=== PATIENT | male | born 1935 | race Caucasian/White ===

== ENCOUNTER 2017-08-30 13:43 | Inpatient (IN) | payer MEDICARE, OTHER ==
[~2017-08-30] VITALS: Ht 188 cm; Wt 87.1 kg
[~2017-08-30 13:43] MED LIST: SYNTHROID100 MCG PO; [UNRECOGNIZED DRUG - OTHER]
[2017-08-30] MEDS ORDERED: CHLORTHALIDONE25 MG PO (13:55)
[2017-08-30 14:46] LABS: HEMATOCRIT 27.8 % (42.0-52.0); HEMOGLOBIN 9.6 gm/dL (14.0-18.0); MCH 32.4 pg (26.0-34.0); MCHC 34.6 g/dL (28.0-37.0); MCV 93.5 fL (80.0-100.0); MPV 7.8 fl. (7.2-11.1); NUCLEATED RBCS 0 /100WBC; PLATELET COUNT* 160 thou/uL (150-400); RBC 2.97 mil/uL (4.50-6.00); RDW-CV 15.1 % (10.5-14.5); WBC 8.6 thou/uL (4.0-11.0)
[2017-08-30 14:54] LABS: URINE BILIRUBIN NEGATIVE (Negative); URINE BLOOD 3+ (Negative); URINE CLARITY CLEAR; URINE COLOR YELLOW; URINE GLUCOSE-RANDOM NEGATIVE (Negative); URINE KETONES NEGATIVE (Negative); URINE LEUKOCYTES-REFLEX 1+ (Negative); URINE NITRITE-REFLEX POSITIVE (Negative); URINE PROTEIN TRACE (Negative); URINE SPECIFIC GRAVITY 1.015 (1.005-1.030); URINE UROBILINOGEN 0.2 E.U./dl (0.2-1.0)
[2017-08-30 14:57] LABS: ANION GAP 21 mmol/L (7-16); BUN 114 mg/dL (7-18); CALCIUM 6.7 mg/dL (8.5-10.1); CHLORIDE 96 mmol/L (98-107); CO2 19 mmol/L (21-32); CREATININE 12.7 mg/dL (0.6-1.3); GLUCOSE 108 mg/dL (70-99); POTASSIUM 3.4 mmol/L (3.5-5.1); SODIUM 136 mmol/L (136-145)
[2017-08-30 15:04] LABS: ALBUMIN 2.7 g/dL (3.4-5.0); ALKALINE PHOSPHATASE 50 U/L (46-116); SGOT 16 U/L (15-37); SGPT 14 U/L (30-65); TOTAL BILIRUBIN 0.4 mg/dL (<0.1-1.0); TOTAL PROTEIN 5.9 g/dL (6.4-8.2); TROPONIN-I LEVEL <0.06 ng/mL (<0.06)
[2017-08-30 15:13] LABS: ABSOLUTE BASOPHILS 0.1 thou/uL (0.0-0.2); ABSOLUTE EOSINOPHILS 0.3 thou/uL (0.0-0.7); ABSOLUTE LYMPHOCYTES 0.2 thou/uL (0.8-5.3); ABSOLUTE MONOCYTES 0.4 thou/uL (0.0-1.2); ABSOLUTE NEUTROPHILS 7.6 thou/uL (1.6-8.1); PLATELET ESTIMATE ADEQUATE
[2017-08-30 15:25] LABS: BACTERIA-REFLEX None Seen /HPF (None Seen); SQUAMOUS 4-10 Moderate /LPF (0-3); URINE RBC 3-10 Few /HPF (0-2); URINE WBC-REFLEX >25 Many /HPF (0-5)
[2017-08-30 15:26] LABS: CASTS None Seen /LPF (None Seen); CRYSTALS None Seen /LPF (None Seen)
--- NOTE | 2017-08-30 17:34 | EKG ---
[place] [address] ELECTROCARDIOGRAM REPORT Name: VAL HORVATH Room: [facility]#: [id number] Admission: 08/30/17 Attend Phys: Discharge: Date of : 31 Report #: [id number] THIS REPORT FOR: //name// [facility] ED Test Date: 2017-08-30 Test Time: 14:11:39 Pat Name: VAL HORVATH Department: Room: Gender: Communications Editor: : 1935 Requested By: Delores Betancourt Order Number: [id number] MD: Rishi Tellez Measurements Intervals [place] Rate: 52 P: 32 VT: 192 QRS: -19 QRSD: 124 T: 3 QT: 474 QTc: 441 Interpretive Statements Sinus rhythm Atrial premature complexes Nonspecific intraventricular conduction delay No previous ECG available for comparison Electronically Signed On 08-30-2017 17:34:02 [employer] SALES CONSULTANT by Rishi Tellez [email or web address] <ELECTRONICALLY SIGNED> By: Rishi Tellez MD, [facility] 08/30/17 1734 1411 1411 Rishi Tellez MD, FACC /EPI
[2017-08-30 18:15] VITALS: BP 136/43
[2017-08-30] MEDS ORDERED: ACETAMINOPHEN325 MG PO (18:58)
[2017-08-30] MEDS ORDERED: MIRALAX17 GM PO (18:59)
[2017-08-30 20:00] VITALS: BP 110/52
[2017-08-31 04:00] VITALS: BP 147/53
[2017-08-31 06:07] LABS: HEMATOCRIT 28.5 % (42.0-52.0); HEMOGLOBIN 9.6 gm/dL (14.0-18.0); MCH 31.8 pg (26.0-34.0); MCHC 33.6 g/dL (28.0-37.0); MCV 94.6 fL (80.0-100.0); MPV 7.5 fl. (7.2-11.1); RBC 3.01 mil/uL (4.50-6.00); RDW-CV 14.8 % (10.5-14.5); WBC 7.7 thou/uL (4.0-11.0)
[2017-08-31 06:37] LABS: ALBUMIN 2.6 g/dL (3.4-5.0); CALCIUM 6.7 mg/dL (8.5-10.1); MAGNESIUM 2.1 mg/dL (1.8-2.4); POTASSIUM 3.8 mmol/L (3.5-5.1); TOTAL BILIRUBIN 0.3 mg/dL (<0.1-1.0); TOTAL PROTEIN 5.3 g/dL (6.4-8.2)
[2017-08-31 06:44] LABS: CREATININE 9.9 mg/dL (0.6-1.3)
[2017-08-31 08:19] VITALS: BP 121/41
[2017-08-31 16:00] VITALS: BP 134/69
[2017-08-31 20:00] VITALS: BP 124/40
[2017-09-01] VITALS: BP 139/43
[2017-09-01 04:00] VITALS: BP 141/46
[2017-09-01 05:40] LABS: ALBUMIN 2.4 g/dL (3.4-5.0); CALCIUM 7.2 mg/dL (8.5-10.1); TOTAL BILIRUBIN 0.3 mg/dL (<0.1-1.0); TOTAL PROTEIN 5.4 g/dL (6.4-8.2)
[2017-09-01 05:56] LABS: CREATININE 6.4 mg/dL (0.6-1.3)
[2017-09-01 05:57] LABS: POTASSIUM 2.8 mmol/L (3.5-5.1)
[2017-09-01 08:00] VITALS: BP 129/90
[2017-09-01 12:00] VITALS: BP 136/65
[2017-09-01 16:00] VITALS: BP 139/57
[2017-09-01 20:07] VITALS: BP 128/42
[2017-09-02 04:20] VITALS: BP 175/71
[2017-09-02 05:27] LABS: HEMATOCRIT 24.8 % (42.0-52.0); HEMOGLOBIN 8.4 gm/dL (14.0-18.0); MCH 32.2 pg (26.0-34.0); MCV 94.5 fL (80.0-100.0); MPV 7.6 fl. (7.2-11.1); RBC 2.62 mil/uL (4.50-6.00); RDW-CV 14.9 % (10.5-14.5); WBC 7.2 thou/uL (4.0-11.0)
[2017-09-02 05:46] LABS: ALBUMIN 2.5 g/dL (3.4-5.0); CALCIUM 7.6 mg/dL (8.5-10.1); CREATININE 4.4 mg/dL (0.6-1.3); TOTAL BILIRUBIN 0.3 mg/dL (<0.1-1.0); TOTAL PROTEIN 5.4 g/dL (6.4-8.2)
[2017-09-02 05:47] LABS: POTASSIUM 2.9 mmol/L (3.5-5.1)
[2017-09-02 08:00] VITALS: BP 173/63
[2017-09-02 16:23] LABS: CALCIUM 7.6 mg/dL (8.5-10.1); CREATININE 3.7 mg/dL (0.6-1.3); POTASSIUM 3.4 mmol/L (3.5-5.1)
[2017-09-02 18:00] VITALS: BP 152/52
[2017-09-02 23:05] VITALS: BP 101/59
[2017-09-03 06:50] LABS: HEMATOCRIT 24.7 % (42.0-52.0); HEMOGLOBIN 8.4 gm/dL (14.0-18.0); MCH 32.2 pg (26.0-34.0); MCHC 33.9 g/dL (28.0-37.0); MCV 94.9 fL (80.0-100.0); MPV 7.4 fl. (7.2-11.1); RBC 2.61 mil/uL (4.50-6.00); RDW-CV 14.9 % (10.5-14.5)
[2017-09-03 07:03] LABS: CALCIUM 7.8 mg/dL (8.5-10.1); CREATININE 3.2 mg/dL (0.6-1.3); POTASSIUM 3.1 mmol/L (3.5-5.1)
[2017-09-03 09:47] VITALS: BP 148/37
[2017-09-03 14:58] LABS: URINE BILIRUBIN NEGATIVE (Negative); URINE BLOOD 2+ (Negative); URINE CLARITY CLEAR; URINE COLOR YELLOW; URINE GLUCOSE-RANDOM NEGATIVE (Negative); URINE KETONES NEGATIVE (Negative); URINE LEUKOCYTES-REFLEX TRACE (Negative); URINE NITRITE-REFLEX NEGATIVE (Negative); URINE PROTEIN NEGATIVE (Negative); URINE SPECIFIC GRAVITY 1.015 (1.005-1.030); URINE UROBILINOGEN 0.2 E.U./dl (0.2-1.0)
[2017-09-03 15:20] LABS: CASTS None Seen /LPF (None Seen); MUCUS 0-3 Light strn/LPF (None Seen); SQUAMOUS 0-3 Few /LPF (0-3); URINE RBC 3-10 Few /HPF (0-2); URINE WBC-REFLEX 6-15 Few /HPF (0-5); WBC CLUMPS Few (None Seen)
[2017-09-03 15:33] LABS: CRYSTALS None Seen /LPF (None Seen)
[2017-09-03 16:11] LABS: POTASSIUM 3.6 mmol/L (3.5-5.1)
[2017-09-03 16:23] VITALS: BP 147/52
[2017-09-04 00:28] VITALS: BP 175/58
[2017-09-04 06:35] LABS: HEMATOCRIT 25.3 % (42.0-52.0); HEMOGLOBIN 8.5 gm/dL (14.0-18.0); MCH 31.7 pg (26.0-34.0); MCHC 33.5 g/dL (28.0-37.0); MCV 94.7 fL (80.0-100.0); MPV 7.7 fl. (7.2-11.1); RBC 2.68 mil/uL (4.50-6.00); RDW-CV 14.9 % (10.5-14.5); WBC 8.1 thou/uL (4.0-11.0)
[2017-09-04 06:43] LABS: CREATININE 2.8 mg/dL (0.6-1.3); MAGNESIUM 1.6 mg/dL (1.8-2.4); POTASSIUM 3.3 mmol/L (3.5-5.1)
[2017-09-04] MEDS ORDERED: FLOMAX0.4 MG PO (07:12)
[2017-09-04] MEDS ORDERED: LEVAQUIN 500 M500 M2 PO (07:12)
[2017-09-04] MEDS ORDERED: ACIDOPHILUS1 EAC4 PO (07:12)
[2017-09-04 07:50] VITALS: BP 175/69
[2017-09-04] MEDS ORDERED: MAGOX 400400 MG PO (09:33)
[2017-09-04] MEDS ORDERED: KLOR-CON 1010 MEQ PO (09:33)
[2017-09-04 10:53] VITALS: BP 175/69
[2017-09-04 12:20] VITALS: BP 175/69
[2017-09-04 12:58] VITALS: BP 175/69
--- NOTE | 2017-09-13 09:46 | CON ---
[address] [address] CONSULTATION Name: YULIETVAL Reji Room: [address] IN M.R.#: [id number] Admission: 08/30/17 Attend Phys: Ronit Hoang MD Discharge: 09/04/17 Date of : 31 Report #: [id number] THIS REPORT FOR: //name// CC: Mauro Khan DATE OF SERVICE: 08/31/2017 REQUESTING PHYSICIAN: Dr. Hoang. REASON FOR CONSULTATION: Acute kidney injury. HISTORY OF PRESENT ILLNESS: The patient is a very pleasant 82-year-old gentleman with medical history significant for bladder cancer who presents to the Emergency Room with complaints of abdominal pain, discomfort, and urinary retention. The patient had a surgery for bladder cancer at [facility] 1 week ago. When he came in, he was found to have BUN of 114 and creatinine 12.7. Kohler was placed and a large amount of urine was drained. Urology was consulted. Dr. Rosas evaluated the patient and his assessment was urinary retention and acute kidney injury due to urinary retention. Urinary retention resolving with placement of Kohler catheter. IV fluids are ongoing. FAMILY HISTORY: Noncontributory. SOCIAL HISTORY: No current tobacco or alcohol abuse. REVIEW OF SYSTEMS: Positive for abdominal distention, decreased urine output prior to placement of the Kohler, poor appetite, and the patient is mildly depressed. PHYSICAL EXAMINATION: GENERAL: He is awake, alert, in no acute distress at the time of my examination. VITAL SIGNS: His blood pressure is 120/41, heart rate is 54, respirations 16, afebrile. HEENT: Pupils are round. NECK: Supple. LUNGS: Clear to auscultation bilaterally. CARDIOVASCULAR: Regular rate. ABDOMEN: Soft. EXTREMITIES: No edema. GENITOURINARY: Kohler catheter in place. LABORATORY DATA: Blood work this morning, serum sodium 145, potassium 3.8, chloride 105, carbon dioxide 22, BUN 104, and creatinine 9.9 down from 12.7 [place] [address] CONSULTATION Name: YULIETVAL M Room: [address]#: [id number] Admission: 08/30/17 Attend Phys: Ronit Hoang MD Discharge: 09/04/17 Date of : 31 Report #: [id number] yesterday. Calcium was 6.7, albumin was 2.6, so adjusted calcium is 7.8. ASSESSMENT: 1. Acute kidney injury due to urinary retention. 2. Recent bladder surgery for bladder cancer. Unknown baseline of his creatinine. The patient's renal functions are improving with IV fluids and Kohler catheter. Urology evaluated the patient. PLAN: We will continue with IV fluid. Continue to monitor his labs. Thank you very much for asking my opinion on acute kidney injury of the patient. <ELECTRONICALLY SIGNED> By: Brian Tapia MD 09/13/17 0946 1001 [id number] Tapia MD /[facility]
[2018-03-31] MEDS ORDERED: POTASSIUM20 PO (11:19)
[2018-03-31] MEDS ORDERED: PHENAZOPYRIDIN200 M2 PO (11:20)
[2018-03-31] MEDS ORDERED: MIRALAX17 GM PO (11:20)
[2018-03-31] MEDS ORDERED: CHLORTHALIDONE25 MG PO (11:21)
[2018-04-09] MEDS ORDERED: NORCO 5-325 TA1 EACH PO (14:17)
== END 2017-09-04 13:01 | disposition home or self-care (01) | DRG 177 ==
LOC: M.ERS 13:43 → M.TBA-ER 17:31 → M.2W 17:31 → M.ORTHSURG 09-02 13:30
PROVIDERS: Internal Medicine Nephrology; Physician Assistant; ADMIT Internal Medicine
DX: J15.6 Pneumonia due to other Gram-negative bacteria (principal); N17.1 Acute kidney failure with acute cortical necrosis; E44.1 Mild protein-calorie malnutrition; N30.01 Acute cystitis with hematuria; E86.0 Dehydration; N18.3 Chronic kidney disease, stage 3 (moderate); N13.9 Obstructive and reflux uropathy, unspecified; M48.8X6 Other specified spondylopathies, lumbar region; E03.9 Hypothyroidism, unspecified; Z68.24 Body mass index [BMI] 24.0-24.9, adult; Z85.850 Personal history of malignant neoplasm of thyroid; Z79.899 Other long term (current) drug therapy

== ENCOUNTER 2017-12-06 11:23 | Emergency (ER) | payer MEDICARE, OTHER ==
[~2017-12-06] VITALS: Ht 182.9 cm; Wt 85.7 kg
[~2017-12-06 11:23] MED LIST changes: +ACETAMINOPHEN325 MG PO; +ACIDOPHILUS1 EAC4 PO; +CHLORTHALIDONE25 MG PO; +FLOMAX0.4 MG PO; +KLOR-CON 1010 MEQ PO; +LEVAQUIN 500 M500 M2 PO; +MAGOX 400400 MG PO; +MIRALAX17 GM PO
[2017-12-06] MEDS ORDERED: PROSCAR 5MG TABL5 MG PO (11:36)
[2017-12-06] MEDS ORDERED: COMBIGAN EYE DR10 ML OPHTHALMIC (11:37)
[2017-12-06] MEDS ORDERED: PHENAZOPYRIDIN200 M2 PO (11:37)
[2017-12-06] MEDS ORDERED: HYCOSAMINE (11:38)
[2017-12-06 13:34] VITALS: BP 112/72
[2018-03-31] MEDS ORDERED: POTASSIUM20 PO (11:19)
[2018-03-31] MEDS ORDERED: MIRALAX17 GM PO (11:20)
[2018-03-31] MEDS ORDERED: PHENAZOPYRIDIN200 M2 PO (11:20)
[2018-03-31] MEDS ORDERED: CHLORTHALIDONE25 MG PO (11:21)
[2018-04-09] MEDS ORDERED: NORCO 5-325 TA1 EACH PO (14:17)
== END 2017-12-06 13:35 | disposition home or self-care (01) ==
LOC: M.ERS 11:23
DX: Z46.6 Encounter for fitting and adjustment of urinary device (principal); E03.9 Hypothyroidism, unspecified; Z85.89 Personal history of malignant neoplasm of other organs and systems

== ENCOUNTER 2018-01-09 16:08 | Inpatient (IN) | payer MEDICARE, OTHER ==
[~2018-01-09] VITALS: Ht 182.9 cm; Wt 80.1 kg
[~2018-01-09 16:08] MED LIST changes: +COMBIGAN EYE DR10 ML OPHTHALMIC; +HYCOSAMINE; +PHENAZOPYRIDIN200 M2 PO; +PROSCAR 5MG TABL5 MG PO
[2018-01-09 16:12] VITALS: BP 143/70
[2018-01-09] MEDS ORDERED: VITAMIN D2000 UNIT PO (16:19)
[2018-01-09] MEDS ORDERED: ONDANSETRON ODT8 MG PO (16:19)
[2018-01-09] MEDS ORDERED: PROTONIX 20 MG20 M1 PO (16:20)
[2018-01-09 17:08] LABS: MCH 30.9 pg (26.0-34.0); MPV 7.7 fl. (7.2-11.1); NUCLEATED RBCS 0 /100WBC; PLATELET COUNT* 185 thou/uL (150-400); RBC 2.11 mil/uL (4.50-6.00); RDW-CV 16.6 % (10.5-14.5); WBC 9.6 thou/uL (4.0-11.0)
[2018-01-09 17:10] LABS: HEMATOCRIT 19.2 % (42.0-52.0); HEMOGLOBIN 6.5 gm/dL (14.0-18.0)
[2018-01-09 17:15] LABS: CREATININE 1.7 mg/dL (0.6-1.3); POTASSIUM 4.1 mmol/L (3.5-5.1)
[2018-01-09 17:20] LABS: ALBUMIN 2.2 g/dL (3.4-5.0); TOTAL BILIRUBIN 0.2 mg/dL (<0.1-1.0); TOTAL PROTEIN 5.2 g/dL (6.4-8.2)
[2018-01-09 17:34] LABS: ABSOLUTE LYMPHOCYTES 0.3 thou/uL (0.8-5.3); ABSOLUTE MONOCYTES 0.6 thou/uL (0.0-1.2); ABSOLUTE NEUTROPHILS 8.7 thou/uL (1.6-8.1); PLATELET ESTIMATE ADEQUATE
[2018-01-09 18:22] VITALS: BP 123/43; BP 124/42; BP 143/75; BP 150/46
[2018-01-09 20:35] VITALS: BP 143/70; BP 150/46
--- NOTE | 2018-01-09 20:35 | NUR ---
NEW PATIENT TO THE FLOOR, TRANSFERRED TO BED WITH SBA, AT BEDSIDE, BLOOD INFUSING. SHOWN CALL LIGHT AND BED CONTROLS, BED ALARM PLACED ON, REFUSING COMPOSING ROOM MACHINIST, EDUCATION GIVEN, WILL CONTINUE TO MONITOR
[2018-01-09 23:53] LABS: HEMOGLOBIN 7.1 gm/dL (14.0-18.0)
[2018-01-10 04:00] VITALS: BP 125/43
--- NOTE | 2018-01-10 05:19 | NUR ---
PT SLEPT AT INTERVALS SINCE ADMISSION, BANDA IN PLACE, REFUSED LEAD CASE MANAGER, EDUCATION GIVEN. HERE UNTIL HS, DAUGHTER STAYED THE NIGHT. UNIT OF BLOOD COMPLETED. REDRAW DONE. TOMAS MARIE CALLED AND FLUIDS ORDERED AND GIVEN. CALL LIGHT IN REACH, WILL CONTINUE TO MONITOR
[2018-01-10 07:22] LABS: CREATININE 1.7 mg/dL (0.6-1.3); HEMATOCRIT 21.2 % (42.0-52.0); MCH 30.5 pg (26.0-34.0); MCHC 33.3 g/dL (28.0-37.0); MCV 91.6 fL (80.0-100.0); MPV 8.2 fl. (7.2-11.1); NUCLEATED RBCS 0 /100WBC; PLATELET COUNT* 182 thou/uL (150-400); POTASSIUM 3.9 mmol/L (3.5-5.1); RBC 2.31 mil/uL (4.50-6.00); WBC 7.6 thou/uL (4.0-11.0)
[2018-01-10 08:17] LABS: ABSOLUTE EOSINOPHILS 0.1 thou/uL (0.0-0.7); ABSOLUTE LYMPHOCYTES 0.3 thou/uL (0.8-5.3); ABSOLUTE MONOCYTES 0.5 thou/uL (0.0-1.2); ABSOLUTE NEUTROPHILS 6.8 thou/uL (1.6-8.1); PLATELET ESTIMATE ADEQUATE
[2018-01-10 09:45] VITALS: BP 141/48
[2018-01-10 11:40] VITALS: BP 128/40
--- NOTE | 2018-01-10 14:46 | NUR ---
CM SPOKE TO THE PATIENT AND SPOUSE TO DISCUSS HOME SITUATION, DISCHARGE PLANNING, AND TO INFORM OF THE ROLE OF CM. PATIENT RESTING WITH HIS EYES CLOSED DURING ASSESSMENT. PATIENT'S SPOUSE ANWERING QUESTIONS. PATIENT RESIDES AT HOME WIH SPOUSE. PATIENT REMAIN INDEPENDENT AND ACTIVE. PATIENT USES 0 DME. PATIENT HAS A HX OF HH WITH [facility]. PATIENTS SPOUSE INFORMS THAT SHE DOES NOT BELIEVE THAT HE WILL HAVE ANY DISCHARGE PLANNING NEEDS. CM WILL REMAIN AVAILABLE TO ASSIST AND FOLLOW NEEDED.
[2018-01-10 15:35] VITALS: BP 127/49
[2018-01-10] MEDS ORDERED: PROBIOTIC1 EAC1 PO (15:40)
[2018-01-10] MEDS ORDERED: LEVOXYL125 MCG PO (15:43)
[2018-01-10 15:51] VITALS: BP 129/59; BP 151/53; BP 152/54; BP 155/53
--- NOTE | 2018-01-10 18:22 | NUR ---
PATIENT HAS BEEN A/O X 4 THIS SHIFT. PATIENT HAS HAD COMPAINTS OF LEFT HIP PAIN, REFUSED ANY MEDS. STARTED ON CARAFATE AND CONTINUES ON PROTONIX DRIP. PATIENT FINISHING 1 UNIT OF BLOOD. CONTINUES ON IV FLUIDS. PATIENT UP WITH SBA. CONTINUES WITH BANDA CATHETER. SEEN BY GI AND ONCOLOGY THIS SHIFT. PATIENT GIVEN DUCOLAX THIS SHIFT, PATIENT HAS HAD 5 BMs AFTER RECEIVING DUCOLAX. PATIENT TOLERATING CLEAR LIQUIDS. AND DAUGHTER AT BEDSIDE MOST OF SHIFT. HOURLY ROUNDING COMPLETED. CALL LIGHT WITHIN REACH. WILL CONTINUE WITH PLAN OF CARE.
--- NOTE | 2018-01-10 19:32 | NUR ---
PATIENT COMPLETED BLOOD TRANSFUSION WITHOUT INCIDENT. IV FLUIDS AND IV PROTONIX RESUMED. PATIENT RESTING COMFORTABLY IN BED AT THIS TIME. CALL LIGHT WITHIN REACH.
[2018-01-10 20:15] VITALS: BP 129/59
[2018-01-11] VITALS: BP 84/66
--- NOTE | 2018-01-11 05:20 | NUR ---
PT SLEPT AT INTERVALS DURING THE NIGHT, IV FLUIDS AND PROTONIX GTT INFUSED, UP SBA TO THE BATHROOM FOR BOWEL MOVEMENTS, BANDA IN PLACE, PLEASANT, HERE UNTIL HS, CALL LIGHT IN REACH, WILL CONTINUE TO MONITOR
[2018-01-11 05:50] LABS: ABSOLUTE BASOPHILS 0.1 thou/uL (0.0-0.2); ABSOLUTE EOSINOPHILS 0.1 thou/uL (0.0-0.7); ABSOLUTE LYMPHOCYTES 0.3 thou/uL (0.8-5.3); ABSOLUTE MONOCYTES 0.7 thou/uL (0.0-1.2); ABSOLUTE NEUTROPHILS 8.6 thou/uL (1.6-8.1); BASOPHILS 0.7 %; EOSINOPHILS 0.7 %; HEMATOCRIT 24.6 % (42.0-52.0); HEMOGLOBIN 8.3 gm/dL (14.0-18.0); MCH 30.5 pg (26.0-34.0); MCHC 33.8 g/dL (28.0-37.0); MCV 90.3 fL (80.0-100.0); MONOCYTES 6.9 %; MPV 8.2 fl. (7.2-11.1); NUCLEATED RBCS 0 /100WBC; PLATELET COUNT* 186 thou/uL (150-400); POLYS 88.7 %; RBC 2.73 mil/uL (4.50-6.00); RDW-CV 16.3 % (10.5-14.5); WBC 9.7 thou/uL (4.0-11.0)
[2018-01-11 06:17] LABS: CALCIUM 8.1 mg/dL (8.5-10.1); CREATININE 1.7 mg/dL (0.6-1.3); POTASSIUM 3.3 mmol/L (3.5-5.1); TOTAL BILIRUBIN 0.4 mg/dL (<0.1-1.0)
[2018-01-11 08:00] VITALS: BP 98/64
[2018-01-11 11:28] LABS: HEMATOCRIT 24.1 % (42.0-52.0); HEMOGLOBIN 8.1 gm/dL (14.0-18.0)
--- NOTE | 2018-01-11 16:09 | NUR ---
RESUMED CARE THIS AM. COMPLIANT WITH MEDS AND CARES, DENIES PAIN, NO DISTRESS NOTED, GARCIA IV ABT WITHOUT S/S ADR. UP TO CHAIR MOST OF THIS SHIFT, HAS BEEN CONTINENT OF BOWEL BLADDER THIS SHIFT. CLEARED BY MEDICINE FOR DISCHARGE, DR. LANDRY AT BEDSIDE FOR CONSULT. PATIENT ANTICIPATED DISCHARGE THIS AFTERNOON, CONT POC.
--- NOTE | 2018-01-11 16:18 | NUR ---
ASSUMED CARE THIS AM. A/O, ADAMANT ABOUT DISCHARGE TODAY, DR. LANDRY @ BEDSIDE TO CLEAR FOR DISCHARGE.
[2018-01-11 17:03] VITALS: BP 128/47
[2018-01-11] MEDS ORDERED: PANTOPRAZOLE SO40 M1 PO (17:58)
[2018-01-11] MEDS ORDERED: CARAFATE 1 GM TA1 G1 PO (18:01)
[2018-01-11 18:09] VITALS: BP 128/47
--- NOTE | 2018-01-11 19:05 | NUR ---
DISCHARGE ORDERS RECEIVED, PORT FLUSHED WITH HEPARIN, ACCESS DISCONTINUED WITHOUT INCIDENT, DISCHARGE INSTRUCTIONS, FOLLOW UP APPOINTMENTS, PRESCRIPTIONS DISCUSSED WITH AND GIVEN TO PATIENT, DENIES QUESTIONS AT THIS TIME. PERSONAL EFFECTS GATHERED, ACCOUNTED FOR, IN COMPANY WITH PATIENT, TRANSPORTED VIA WHEELCHAIR TO MAIN ENTRANCE IN STABLE CONDITION.
--- NOTE | 2018-01-12 09:20 | CON ---
[address] [address] CONSULTATION Name: VAL HORVATH Room: [address] IN M.R.#: [id number] Admission: 01/09/18 Attend Phys: Shane Skelton MD Discharge: 01/11/18 Date of : 33 Report #: [id number] THIS REPORT FOR: //name// CC: Shane Khan DATE OF SERVICE: 01/10/2018 ADDENDUM. The patient with recent history of upper endoscopy with discovery of multiple gastric ulcers, who presented with anemia. 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 Since hospitalization here, we had recommended Protonix drip and Carafate suspension. We will continue this and monitor hemoglobin. If his hemoglobin is stable, we will advance diet and discharge home. The patient is agreeable with plan. We will consider upper endoscopy in 8 weeks. <ELECTRONICALLY SIGNED> By: Basim Bruno MD 01/12/18 0920 1628 [id number] Bruno MD /nt
--- NOTE | 2018-01-12 09:20 | CON ---
[address] [address] CONSULTATION Name: YULIETVAL M Room: [address] IN M.R.#: [id number] Admission: 01/09/18 Attend Phys: Shane Skelton MD Discharge: 01/11/18 Date of : 33 Report #: [id number] THIS REPORT FOR: //name// CC: Shane Khan MD DICTATED BY: Batsheva Humphrey [facility] DATE OF SERVICE: 01/10/2018 Please note at the time of this dictation, the patient was seen and physically examined by myself. REASON FOR CONSULTATION: Possible GI bleeding. HISTORY OF PRESENT ILLNESS: This 82-year-old male presented to the Emergency Room after being told by Dr. Khan for his decreasing hemoglobin that he needed to go and be further evaluated. One week ago while the patient was vacationing in [place], he began having some abdominal pain and had some episodes of very dark vomitus that was coffee ground or black in nature. In further investigation, the patient had been taking a significant amount of ibuprofen for his hip pain that he was having at that time. He did undergo an EGD when he was in [place] that indicated he had esophagitis, gastritis as well as gastric ulcers. Pathology was sent back with him, which was negative for H. pylori, but I do not actually have the actual EGD report to know as to if there was any treatment done. Family is at the bedside. They have pictures, but no other report. They feel that nothing was treated that they can recall from the conversation. It was noted that the patient's hemoglobin on 11/19/2017 was 10.8, middle of November was 10.6 and on 12/11/2017, he was down to 9.9. When he presented to the Emergency Room in [place], he was 6.5. He received 4 units of blood there and when he left [place], he was 9.9 and had gone down to 9 in the morning when he flew back. Also, during his stay down there, he was only placed on Protonix once a day when he was discharged and to avoid any NSAID use. It was also noted he had some acute renal failure and was having difficulty urinating and hematuria was noted. Urology was consulted and placed a Kohler catheter due to his enlarged prostate and also a stent was placed in his ureter due to a partial obstruction. At that time when he got back to [place], he went and saw Dr. Khan on Saturday of this week who prince labs and said to get blood work and noting his hemoglobin on Saturday was 7.5 and when he was sent to the Emergency Room, it was 6.7. He has received a unit of blood since he has been here. Since getting out of the hospital, he denies any nausea or vomiting. He has been eating okay. He denies any abdominal pain; however, he is still having black stools that he has noted. He is having some issues with constipation and fully evacuating his bowel. He states he has been having this for some time since he has had the radiation to his bladder [place] [address] CONSULTATION Name: YULIETVAL M Room: [address] IN M.R.#: [id number] Admission: 01/09/18 Attend Phys: Shane Skelton MD Discharge: 01/11/18 Date of : 33 Report #: [id number] had bowel surgery several years ago to remove a polyp in which a colon resection was performed. Ever since then and his radiation, he has difficulty fully evacuating his bowel, but he has not had any colonoscopy or flexible sigmoidoscopy since that time. He has been taking MiraLax to help with this, but that still does not allow him full evacuation. ALLERGIES: No known drug allergies. MEDICATIONS: From home include pantoprazole, Zofran, vitamin D, Combigan eye drops and Proscar. PAST MEDICAL HISTORY: Hypothyroidism, history of throat cancer, bladder cancer with mets, colon resection secondary to polyp and the right ureteral stent placed here recently. FAMILY HISTORY: Noncontributory. SOCIAL HISTORY: Denies any alcohol, tobacco or illegal drug use. REVIEW OF SYSTEMS: Twelve-point review of systems is essentially negative except what is mentioned in the HPI. PHYSICAL EXAMINATION: VITAL SIGNS: Temperature 37.1, pulse 62, respirations 18, blood pressure 125/43. HEART: Regular rate and rhythm. LUNGS: Diminished, but clear. ABDOMEN: Soft, positive bowel sounds in all 4 quadrants with some right lower quadrant to suprapubic tenderness noted to palpation. LABORATORY DATA: On admission, hemoglobin was 6.5. He has got a unit of blood. He went up to 7.1 last night, he is at 7 currently. His hematocrit is 21.2, white count is 7.6, platelets 182. Sodium 139, potassium 3.9, chloride 106, CO2 of 26, BUN is 36 and creatinine is 1.7 with a GFR of 39 and a glucose of 110. CT of his abdomen and pelvis is negative, GI. IMPRESSION: 1. History of recent gastrointestinal bleed. 2. Acute anemia. 3. Melanotic stool. 4. History of nonsteroidal anti-inflammatory drug use. 5. Throat cancer and metastatic bladder cancer, recent radiation treatment. 6. Constipation and ineffective evacuation of his bowel. 7. Recent acute renal failure with Kohler and stent placement. PLAN: [address] [place] [address] CONSULTATION Name: VAL HORVATH Room: [address] IN M.R.#: [id number] Admission: 01/09/18 Attend Phys: Shane Skelton MD Discharge: 01/11/18 Date of : 33 Report #: [id number] 1. Lengthy discussion with the patient's and daughter about how to proceed. They are very hesitant to proceed with an EGD. The patient is wanting to get it over with, but and daughter want to go more conservatively since his hemoglobin has been stable over the last 12 hours with him being on the Protonix drip. 2. Continue his Protonix drip. 3. We will add Carafate suspension a.c. and at bedtime. 4. Obtain EGD report from [facility] in [place]. 5. Clear liquids, advance as tolerated. 6. Dulcolax tablets and we will need a better bowel regimen upon discharge due to his renal function. 7. Monitor H and H. 8. Discussed with the patient and family that if he should have any further nausea or vomiting or his hemoglobin drops any further despite the treatment modality that he is on, he will likely need a repeat EGD, otherwise, we will plan on repeat EGD in 2 months along with a colonoscopy to evaluate his symptoms of being unable to fully evacuate his bowel and constipation. Thank you for allowing us to participate in this patient's care. Please do not hesitate to call with any questions in regard to this consult. Please note at the time of this dictation, greater than 45 minutes was spent with the patient and family. ADDENDUM I have personally seen and examined the patient and reviewed labs and imaging. The patient with recent history of GI bleeds, who has undergone upper endoscopy. The patient does not know the details of the procedure, but reports that he was put on Protonix. He has a history of throat cancer with mets to the bladder. He also has been taking NSAIDs prior to his EGD a week ago. The patient has been told that he had multiple ulcers and that explained the melanotic stool. Since hospitalization, the patient has received 1 unit of packed RBC as his hemoglobin has gone from 6.7 to 7.1. He has been placed on Protonix drip. We will continue monitoring the patient and if his hemoglobin drops further, we may consider performing an upper scope. Family is resistant to any procedures at this time. We will make further recommendation based on the patient's hospital course. <ELECTRONICALLY SIGNED> By: Basim Bruno MD 01/12/18 0920 1135 1949Basim Bruno MD /nt
--- NOTE | 2018-01-13 08:18 | NUR ---
P.T. ORDERS RECEIVED 01/10/18. P.T. EVAL ATTEMPTED X 3 01/11/18. UNABLE TO COMPLETE. PT DISCHARGED LATER 01/11/18.
--- NOTE | 2018-01-20 13:37 | CON ---
[address] [address] CONSULTATION Name: VAL HORVATH Room: [address] IN M.R.#: [id number] Admission: 01/09/18 Attend Phys: Shane Skelton MD Discharge: 01/11/18 Date of : 33 Report #: [id number] THIS REPORT FOR: //name// CC: Shane Khan DATE OF SERVICE: 01/10/2018 REQUESTING PHYSICIAN: Shane Skelton MD REASON FOR CONSULTATION: Metastatic bladder cancer, anemia. 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 He had initially radiation to the spine because of painful metastatic disease. Since that he has done very well and he has not had recurrence of transitional cell carcinoma. 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 He just finished radiation. He went to [place] for vacation after completion of radiation, developed GI bleeding, was admitted to the hospital in [place], had an EGD done, which showed multiple duodenal ulcers. He was placed on PPI, was sent home. He was [facility], was found to have significant anemia and was admitted to the hospital for evaluation ____ Oncology consult is requested. He is doing well. He has transfusion of 1 packed red blood cells. His hemoglobin is still low, but does not have any melena, hematochezia, has not had any hematuria. He has complaints of left hip pain. He says during radiation, he developed acute left hip pain when nurses were moving him off the table. He said he has been limping and has been having left hip pain. PAST MEDICAL HISTORY: Significant for metastatic bladder cancer, small cell bladder cancer, anemia, pneumonia, GI bleeding, acute renal failure, hypothyroidism. SOCIAL HISTORY: Has very supportive daughter and friend at bedside. He does not smoke and never smokes. FAMILY HISTORY: Noncontributory. REVIEW OF SYSTEMS: CONSTITUTIONAL: No weight loss, fever or chills. HEENT: Negative. CARDIOVASCULAR: No chest pain or palpitation. RESPIRATORY: No shortness of breath. GASTROINTESTINAL: [place] [address] CONSULTATION Name: VAL HORVATH Room: [address]#: [id number] Admission: 01/09/18 Attend Phys: Shane Skelton MD Discharge: 01/11/18 Date of : 31 Report #: [id number] GENITOURINARY: See above. NEUROLOGIC: Negative. MUSCULOSKELETAL: See above. PSYCHIATRIC: No history of depression. HEMATOLOGY: See above. PHYSICAL EXAMINATION: GENERAL: Reveals a well-developed, well-nourished man, not in acute distress. VITAL SIGNS: Blood pressure 128/40, heart rate is 66, temperature 98.0, respirations 18. HEENT: Does not reveal thrush. HEART: Normal S1, S2. LUNGS: Clear. ABDOMEN: Soft, no organomegaly. EXTREMITIES: No edema. MENTAL STATUS: Alert and oriented x 3. NECK: Supple. LABORATORY DATA: White count 7.6, hemoglobin 7.0, MCV 91.6. Sodium 139, potassium 3.9, BUN 36, creatinine 1.7. 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 ASSESSMENT AND PLAN: 1. Anemia. I agree with management. I agree there is no need to do EGD at this point since he had EGD recently. If he continues to have gastrointestinal bleeding ____ I will defer further management to GI team. 2. ____ transfusion. 3. Left hip pain. I am trying to order an x-ray of the left hip and pelvis. Initially, he does not have any occult fracture. 4. Metastatic bladder cancer. Continue follow up with Dr. Khan for immunotherapy when he is discharged from the hospital. Thank you very much for allowing me to participate in care of this patient. <ELECTRONICALLY SIGNED> By: Martha Lopez MD 01/20/18 1337 1253 [id number] Barboza MD /nt
[2018-03-31] MEDS ORDERED: POTASSIUM20 PO (11:19)
[2018-03-31] MEDS ORDERED: MIRALAX17 GM PO (11:20)
[2018-03-31] MEDS ORDERED: PHENAZOPYRIDIN200 M2 PO (11:20)
[2018-03-31] MEDS ORDERED: CHLORTHALIDONE25 MG PO (11:21)
[2018-04-09] MEDS ORDERED: NORCO 5-325 TA1 EACH PO (14:17)
== END 2018-01-11 19:20 | disposition home or self-care (01) | DRG 811 ==
LOC: M.ERS 16:08 → M.3W 17:29 → M.TBA-ER 17:29 → M.3W 20:50
PROVIDERS: Emergency Medicine Emergency Medical Services; Nurse Practitioner Adult Health; ADMIT Internal Medicine
PROC: 30233N1 Transfusion of Nonautologous Red Blood Cells into Peripheral Vein, Percutaneous Approach (ICD-10-PCS; principal; 2018-01-09)
DX: D62 Acute posthemorrhagic anemia (principal); K25.0 Acute gastric ulcer with hemorrhage; K26.0 Acute duodenal ulcer with hemorrhage; E44.0 Moderate protein-calorie malnutrition; M19.90 Unspecified osteoarthritis, unspecified site; N18.3 Chronic kidney disease, stage 3 (moderate); E03.9 Hypothyroidism, unspecified; K59.00 Constipation, unspecified; Z87.11 Personal history of peptic ulcer disease; Z85.51 Personal history of malignant neoplasm of bladder; Z85.810 Personal history of malignant neoplasm of tongue; Z79.1 Long term (current) use of non-steroidal anti-inflammatories (NSAID); Z79.2 Long term (current) use of antibiotics; Z79.899 Other long term (current) drug therapy

== ENCOUNTER → 2018-03-31 | Outpatient (CLI) | payer MEDICARE, OTHER ==
[~2018-03-31] MED LIST changes: +CARAFATE 1 GM TA1 G1 PO; +CIPROFLOXACIN500 M1 PO; +LEVOXYL125 MCG PO; +NORCO 5-325 TA1 EACH PO; +ONDANSETRON ODT8 MG PO; +PANTOPRAZOLE SO40 M1 PO; +POTASSIUM20 PO; +PROBIOTIC1 EAC1 PO; +PROTONIX 20 MG20 M1 PO; +VITAMIN D2000 UNIT PO
--- NOTE | 2018-03-31 17:12 | EKG ---
[place] [address] ELECTROCARDIOGRAM REPORT Name: YULIET,VAL Reji Room: [facility]#: [id number] Admission: 03/31/18 Attend Phys: Omi Rosas MD Discharge: Date of : 31 Report #: [id number] THIS REPORT FOR: //name// [facility] Test Date: 2018-03-31 Test Time: 13:27:37 Pat Name: VAL HORVATH Department: Room: Gender: M General Ledger Accountant: : 1935 Requested By: Omi Rosas Order Number: [id number] Reading MD: Rishi Tellez Measurements Intervals [place] Rate: 59 P: 15 ME: 184 QRS: -21 QRSD: 93 T: 0 QT: 413 QTc: 410 Interpretive Statements Sinus arrhythmia Borderline left axis deviation Borderline T abnormalities, inferior leads Compared to ECG 08/30/2017 14:11:39 no change Electronically Signed On 03-31-2018 17:12:13 CDT by Rishi Tellez [email or web address] <ELECTRONICALLY SIGNED> By: Rishi Tellez MD, [facility] 03/31/18 1712 26 Rishi Tellez MD, FACC /EPI
== END ==
LOC: M.LAB 13:08
DX: Z01.818 Encounter for other preprocedural examination (principal); I49.9 Cardiac arrhythmia, unspecified; N13.30 Unspecified hydronephrosis; I10 Essential (primary) hypertension; Z79.899 Other long term (current) drug therapy

== ENCOUNTER → 2018-04-08 | Outpatient (CLI) | payer MEDICARE, OTHER ==
[2018-04-08 10:20] VITALS: BP 120/45
--- NOTE | 2018-04-08 11:27 | NUR ---
ARRIVED AMBULATORY. MADE SELF COMFORTABLE IN RECLINER. PORT A CATAH ACCESSED WITH OUT DIFFICULTY. GOOD BRISK BLOOD RETURN NOTED AND FLUSHED WITH EASE. INFUSION COMPLETED AND TOLERATED WELL. PORT FLUSHED AND DEACCESSED. DENIES QUESTIOSN OR NEEDS AT DISHACRGE.
== END ==
LOC: M.INFUS 08:34
DX: N39.0 Urinary tract infection, site not specified (principal)

== ENCOUNTER → 2018-04-09 | Day surgery (SDC) | payer MEDICARE, OTHER ==
[2018-04-09 12:05] LABS: HEMATOCRIT 28.3 % (42.0-52.0); HEMOGLOBIN 9.3 gm/dL (14.0-18.0); MCH 31.9 pg (26.0-34.0); MCHC 32.9 g/dL (28.0-37.0); MCV 96.8 fL (80.0-100.0); MPV 7.4 fl. (7.2-11.1); RBC 2.92 mil/uL (4.50-6.00); WBC 7.7 thou/uL (4.0-11.0)
[2018-04-09 12:09] LABS: CALCIUM 8.6 mg/dL (8.5-10.1); CREATININE 2.4 mg/dL (0.6-1.3); POTASSIUM 3.7 mmol/L (3.5-5.1)
[2018-04-09 12:19] LABS: ALBUMIN 3.1 g/dL (3.4-5.0); TOTAL BILIRUBIN 0.2 mg/dL (<0.1-1.0)
--- NOTE | 2018-05-07 08:14 | OP ---
[facility] [address] [place] [address] OPERATIVE REPORT Name: VAL HORVATH Room: [facility].#: [id number] Admission: 04/09/18 Attend Phys: Omi Rosas MD Discharge: Date of : 33 Report #: [id number] THIS REPORT FOR: //name// CC: [facility] Brian Rosas DATE OF SERVICE: 04/09/2018 PREOPERATIVE DIAGNOSIS: Right hydronephrosis and metastatic bladder cancer. POSTOPERATIVE DIAGNOSIS: Right hydronephrosis and metastatic bladder cancer. PROCEDURE: Cystourethroscopy, clot evacuation, right ureteral stent removal, right retrograde pyelogram, right ureteral stent placement (6-Zimbabwean x 26 cm) and fulguration of bladder bleeding. SURGEON: Jenniffer Solorio M.D. ANESTHESIA: General. ESTIMATED BLOOD LOSS: None. COMPLICATIONS: None. SPECIMENS: None. INDICATIONS FOR PROCEDURE: The patient is an 82-year-old male with metastatic small cell bladder cancer. He is a patient of Dr. Rosas's. He had a right ureteral stent placed about 3 months ago for development of right ureteral obstruction and hydronephrosis. He now presents for stent removal versus exchange. Risks of procedure were discussed including, but not limited to infection, bleeding, injury to the urethra, bladder, ureter, need for secondary procedures, stent pain, cardiopulmonary complications. He voiced understanding and wishes to proceed. DESCRIPTION OF PROCEDURE: After informed consent was obtained, the patient was taken back to the operating suite and placed supine. After induction of general anesthesia, he was placed in dorsal lithotomy position. Genitalia were prepped and draped in standard fashion. Rigid cystoscopy was performed. Urethra was normal. There were no strictures. Prostate showed bilobar hyperplasia with some visual obstruction. On entrance at the bladder neck, he had a lot of debris in his bladder. He had a preoperative urine culture positive for pseudomonas and was given IV ceftazidime yesterday and [place] [address] OPERATIVE REPORT Name: VAL HORVATH Room: [facility]#: [id number] Admission: 04/09/18 Attend Phys: Omi Rosas MD Discharge: Date of : 33 Report #: [id number] stent is colonized. He has had repeated urine cultures positive for pseudomonas. The bladder was emptied and filled several times to clear him up. The bladder was inspected. He had changes consistent with radiation cystitis, but there were no new tumors appreciated. His prostate was a bit friable. The indwelling stent on the right was seen protruding from the right UO at somewhat of an odd angle instead of coming out flat on the bladder. It was straight up in the air. The stent did appear to have a film on it, but there was no encrustation at all. The stent was externalized at the meatus and sensor wire was threaded up into the right kidney. Using a dual lumen catheter, retrograde was performed. This revealed several areas of stricture and narrowing in the distal ureter with proximal hydroureteronephrosis. Given the continued presence of hydronephrosis, I felt stent replacement was necessary. The wire was left in place and a 6-Zimbabwean x 26-cm double-J stent was threaded over the wire with some difficulty due to the angle, but with slow and steady movement, I was able to advance the stent into the ureter and up into the kidney. The wire was removed. Good curl was seen within the upper pole and good curl was seen within the bladder and again the stent protruded directly upright from the bladder floor given the patient's anatomy. I should mention during retrograde pyelogram, any contrast that filled the bladder did reflux up the left side and this showed some mild hydronephrosis from the reflux. The left UO was visible in the bladder and not obstructed. Once the stent was in place, he had a lot of clot that had formed in the bladder and this was removed through the scope and using flexible graspers. He also had a few areas on the posterior right wall that were oozing from his radiation cystitis, so these were spot cauterized with Bugbee cautery. Once this was all accomplished, hemostasis remained excellent. The bladder then was drained and the scope was removed. 10 mL of lidocaine jelly were placed per urethra for local anesthesia. He was awoken, extubated and taken to recovery in satisfactory condition. He will follow up with me in a week or two for postop visit and then will need a stent change in 3 months. A 22 modifier will be added due to increased level of complexity due to the patient's history of bladder cancer and difficulty with stent change due to his bladder cancer and history of radiation cystitis. <ELECTRONICALLY SIGNED> By: Jenniffer Solorio MD 05/07/18 0814 1359 [id number] Solorio MD /nt
== END | disposition home or self-care (01) ==
LOC: M.SUR
PROVIDERS: Urology
DX: N13.1 Hydronephrosis with ureteral stricture, not elsewhere classified (principal); C67.9 Malignant neoplasm of bladder, unspecified; N30.40 Irradiation cystitis without hematuria; N40.1 Benign prostatic hyperplasia with lower urinary tract symptoms; Z79.891 Long term (current) use of opiate analgesic; Z87.19 Personal history of other diseases of the digestive system; Z98.890 Other specified postprocedural states; Z79.899 Other long term (current) drug therapy

== ENCOUNTER 2018-04-16 10:29 | Outpatient (CLI) | payer MEDICARE, OTHER ==
[~2018-04-16] VITALS: Ht 182.9 cm; Wt 81.5 kg
[~2018-04-16 10:29] MED LIST changes: -CIPROFLOXACIN500 M1 PO
[2018-04-16 10:40] VITALS: BP 120/43
[2018-04-16 11:22] LABS: HEMATOCRIT 26.8 % (42.0-52.0); HEMOGLOBIN 8.9 gm/dL (14.0-18.0); MCH 32.1 pg (26.0-34.0); MCHC 33.1 g/dL (28.0-37.0); MCV 96.8 fL (80.0-100.0); MPV 7.4 fl. (7.2-11.1); NUCLEATED RBCS 0 /100WBC; PLATELET COUNT* 161 thou/uL (150-400); RBC 2.77 mil/uL (4.50-6.00); RDW-CV 17.9 % (10.5-14.5)
[2018-04-16 11:35] LABS: APTT 33.5 Seconds (25.0-31.3); PROTIME 10.6 Seconds (9.20-11.50)
[2018-04-16 11:51] LABS: ABSOLUTE BASOPHILS 0.1 thou/uL (0.0-0.2); ABSOLUTE EOSINOPHILS 0.1 thou/uL (0.0-0.7); ABSOLUTE LYMPHOCYTES 0.7 thou/uL (0.8-5.3); ABSOLUTE MONOCYTES 0.3 thou/uL (0.0-1.2); ABSOLUTE NEUTROPHILS 5.9 thou/uL (1.6-8.1); ANION GAP 8 mmol/L (7-16); BUN 50 mg/dL (7-18); CALCIUM 8.7 mg/dL (8.5-10.1); CHLORIDE 107 mmol/L (98-107); CO2 25 mmol/L (21-32); CREATININE 2.2 mg/dL (0.6-1.3); GLUCOSE 114 mg/dL (70-99); POTASSIUM 3.7 mmol/L (3.5-5.1); SODIUM 140 mmol/L (136-145)
[2018-04-16 11:52] LABS: ANISOCYTOSIS 1+; PLATELET ESTIMATE ADEQUATE; POIKILOCYTOSIS 1+
[2018-04-16 11:58] LABS: ALBUMIN 3.1 g/dL (3.4-5.0); ALKALINE PHOSPHATASE 52 U/L (46-116); LIPASE 180 U/L (73-393); NT-PRO BRAIN NAT PEPTIDE 566 pg/mL (<300); SGOT 16 U/L (15-37); SGPT 13 U/L (30-65); TOTAL BILIRUBIN 0.2 mg/dL (<0.1-1.0); TOTAL PROTEIN 6.4 g/dL (6.4-8.2); TROPONIN-I LEVEL <0.06 ng/mL (<0.06)
[2018-04-16 12:00] LABS: URINE BILIRUBIN NEGATIVE (Negative); URINE BLOOD 3+ (Negative); URINE CLARITY CLEAR; URINE COLOR YELLOW; URINE GLUCOSE-RANDOM NEGATIVE (Negative); URINE KETONES NEGATIVE (Negative); URINE PROTEIN 2+ (Negative); URINE UROBILINOGEN 0.2 E.U./dl (0.2-1.0)
[2018-04-16 12:01] LABS: URINE LEUKOCYTES-REFLEX 3+ (Negative); URINE NITRITE-REFLEX POSITIVE (Negative)
[2018-04-16] MEDS ORDERED: CIPROFLOXACIN500 M1 PO (12:02)
[2018-04-16 12:08] LABS: BACTERIA-REFLEX 1-9 Few /HPF (None Seen); CASTS None Seen /LPF (None Seen); CRYSTALS None Seen /LPF (None Seen); MUCUS 0-3 Light strn/LPF (None Seen); SQUAMOUS 0-3 Few /LPF (0-3); URINE RBC 3-10 Few /HPF (0-2); URINE WBC-REFLEX >25 Many /HPF (0-5)
[2018-04-16 12:21] VITALS: BP 133/45
--- NOTE | 2018-04-16 18:19 | EKG ---
[place] [address] ELECTROCARDIOGRAM REPORT Name: VAL HORVATH Room: [facility].#: [id number] Admission: 04/16/18 Attend Phys: FOR E.D. REG USE Discharge: Date of : 31 Report #: [id number] THIS REPORT FOR: //name// [facility] ED Test Date: 2018-04-16 Test Time: 10:43:22 Pat Name: VAL HORVATH Department: Room: Gender: Medical Supervisor: MIKE : 1935 Requested By: Miah Bui Order Number: [id number] MD: Rishi Tellez Measurements Intervals [place] Rate: 54 P: 50 CO: 207 QRS: -16 QRSD: 96 T: -13 QT: 445 QTc: 422 Interpretive Statements Sinus bradycardia Atrial premature complex Borderline left axis deviation Consider anterior infarct Baseline wander in lead(s) V2,V4 Compared to ECG 03/31/2018 13:27:37 no change Electronically Signed On 04-16-2018 18:19:03 CDT by Rishi Tellez [email or web address] <ELECTRONICALLY SIGNED> By: Rishi Tellez MD, FAC 04/16/18 1819 1043 1043 Rishi Tellez MD, [facility] /EPI
== END 2018-04-16 12:21 | disposition home or self-care (01) ==
LOC: M.ERS 12:21
PROVIDERS: Family Medicine; Radiology Diagnostic Radiology
DX: C67.9 Malignant neoplasm of bladder, unspecified (principal); R00.1 Bradycardia, unspecified; R50.9 Fever, unspecified; R06.02 Shortness of breath; E03.9 Hypothyroidism, unspecified

== ENCOUNTER → 2018-05-03 | Outpatient (CLI) | payer MEDICARE, OTHER ==
[~2018-05-03] MED LIST changes: +CIPROFLOXACIN500 M1 PO
== END ==
LOC: M.INFUS 07:56
DX: N39.0 Urinary tract infection, site not specified (principal)

== ENCOUNTER → 2018-05-04 | Outpatient (CLI) | payer MEDICARE, OTHER | LOC: M.INFUS 07:56 | DX: N39.0 Urinary tract infection, site not specified (principal) ==

== ENCOUNTER → 2018-06-04 | Outpatient (CLI) | payer MEDICARE, OTHER ==
[~2018-06-04] MED LIST changes: +BETIMOL5 ML OPHTHALMIC; +LEVSIN0.125 MG PO; +OXYBUTYNIN 5 MG5 M2 PO; +TRAMADOL 50 MG50 MG PO; +ZOSYN 3.3753.375 GM IV
--- NOTE | 2018-06-04 09:00 | NUR ---
ARRIVED AMBULATORY. MADE SELF COMFORTABLE IN RECLINER. RIGHT CHEST PORT A CATH ALREADY ACCESSED. GOOD BRISK BLOOD RETURN NOTED AND PORT A CATH FLUSHED W/EASE. 2 UNITS PRBC'S COMPLETED AND TOLERATED WELL. PORT A CATH FLUSHED W/20 ML NS AND LEFT ACCESSED PT HEADED TO CHEMOTHERAPY APPT. DENIES ANY QUESTIONS OR NEEDS AT DISCHARGE. PT LEFT AMBULATORY. ACCOMPANIED PT.
[2018-06-04 09:28] VITALS: BP 125/58; BP 128/63; BP 138/59
[2018-06-04 11:42] VITALS: BP 128/63; BP 131/56; BP 131/61; BP 143/56
== END ==
LOC: M.INFUS 04:56
DX: C67.2 Malignant neoplasm of lateral wall of bladder (principal); D64.9 Anemia, unspecified

== ENCOUNTER → 2018-07-30 | Outpatient (CLI) | payer MEDICARE, OTHER ==
[2018-07-30 09:40] VITALS: BP 129/45; BP 135/51; BP 145/51
[2018-07-30 11:38] VITALS: BP 135/51; BP 148/62; BP 150/58; BP 153/53; BP 162/47
--- NOTE | 2018-07-30 15:12 | NUR ---
ARRIVED AMUBLATORY. MADE SELF COMFORTABLE IN RECLINER. PORT A CATH ALREADY ACCESSED. PORT PATENT. PREMEDS PER ORDER. TRANSFUSION COMPLETED AND TOLERATED WELL. COMPLAINT OF PAIN IN PROSTATE A BURNING LIKE SENSATION FOR 45 MIN POST LASIX WITH FREQUENT URINATION. STATES HAS HAD THIS PAIN BEFORE. PORT FLUSHED AT END AND LEFT ACCESSED FOR USE AT [facility] TOMORROW. DENIES QUESTIONS OR NEEDS AT DISCHARGE.
== END ==
LOC: M.INFUS 02:14
DX: C67.9 Malignant neoplasm of bladder, unspecified (principal)

== ENCOUNTER 2018-09-01 23:20 | Emergency (ER) | payer MEDICARE, OTHER ==
[~2018-09-01] VITALS: Ht 180.3 cm; Wt 78.9 kg
[2018-09-01] MEDS ORDERED: NEPHROCAPS SOFT1 CAP PO (23:34)
[2018-09-01] MEDS ORDERED: FRUIT C-100100 MG PO (23:34)
[2018-09-02 01:08] LABS: URINE BILIRUBIN NEGATIVE (Negative); URINE BLOOD 3+ (Negative); URINE CLARITY CLOUDY; URINE COLOR RED; URINE GLUCOSE-RANDOM NEGATIVE (Negative); URINE KETONES NEGATIVE (Negative); URINE LEUKOCYTES-REFLEX 1+ (Negative); URINE NITRITE-REFLEX NEGATIVE (Negative); URINE PROTEIN 3+ (Negative); URINE UROBILINOGEN 0.2 E.U./dl (0.2-1.0)
[2018-09-02] MEDS ORDERED: KEFLEX500 M1 PO (01:13)
[2018-09-02 01:15] LABS: CASTS None Seen /LPF (None Seen); SQUAMOUS NONE SEEN /LPF (0-3); URINE RBC >20 Many /HPF (0-2); URINE WBC-REFLEX >25 Many /HPF (0-5)
[2018-09-02 01:16] LABS: CRYSTALS None Seen /LPF (None Seen)
[2018-09-02 01:23] VITALS: BP 148/54
== END 2018-09-02 01:24 | disposition home or self-care (01) ==
LOC: M.ERS 23:20
PROVIDERS: Nurse Practitioner Family
DX: T83.038A Leakage of other urinary catheter, initial encounter (principal); Y84.6 Urinary catheterization as the cause of abnormal reaction of the patient, or of later complication, without mention of misadventure at the time of the procedure; Y73.8 Miscellaneous gastroenterology and urology devices associated with adverse incidents, not elsewhere classified; E03.9 Hypothyroidism, unspecified; Z85.89 Personal history of malignant neoplasm of other organs and systems; K21.9 Gastro-esophageal reflux disease without esophagitis; N19 Unspecified kidney failure; I48.91 Unspecified atrial fibrillation; Z85.51 Personal history of malignant neoplasm of bladder

== ENCOUNTER → 2018-10-28 | Outpatient (CLI) | payer MEDICARE, OTHER ==
[~2018-10-28] MED LIST changes: +CIPRO500 MG PO; +FRUIT C-100100 MG PO; +KEFLEX500 M1 PO; +NEPHROCAPS SOFT1 CAP PO; +SYNTHROID137 MC1 PO; +TIMOLOL GL0.5 %/5 M1 OPHTHALMIC; +TYLENOL EXTRA500 MG PO
--- NOTE | 2018-10-28 09:00 | NUR ---
PATIENT ARRIVAL AMULATORY FROM HOME WITH TO PREOP AREA FOR OP INFUSION. MADE SELF COMFORTABLE IN RECLINER. CALL LIGHT AND REMOTE GIVEN TO PATIENT. HISTORY AND ORDERS REVEIWED. REASSESSMENT AND VS OBTAINED. RT CHEST PORTACATH ALREADY ACCESSED AND IN PLACE UPON ARRIVAL TO UNIT. PORTACATH WITH BRISK BLOOD RETURN AND FLUSHES WELL, DRESSING C/D/I.
[2018-10-28 09:06] VITALS: BP 142/57
--- NOTE | 2018-10-28 09:26 | NUR ---
ANTIBIOTIC INFUSION STARTED PER ORDERS.
--- NOTE | 2018-10-28 10:30 | NUR ---
ANTIBIOTIC INFUSION COMPLETED AT 1030. PATIENT TOELRATES MEDICATION WELL. PORTACATH FLUSHED WITH NS 20MLS AND PORT PACKED WITH HEPARIN SOLUTION 5MLS OF 100UNIT/ML SOLUTION. DISCHARGE INSTRUCTIONS REVIEWED. PATIENT DEPARTS FOR HOEM WITH AT 1032.
== END ==
LOC: M.INFUS 05:18
DX: N39.0 Urinary tract infection, site not specified (principal); Z16.35 Resistance to multiple antimicrobial drugs

== ENCOUNTER → 2018-10-28 | Outpatient (CLI) | payer MEDICARE, OTHER ==
--- NOTE | 2018-10-28 09:00 | NUR ---
PATIENT ARRIVAL AMBULATORY FROM HOME WITH TO PREOP AREA FOR OP INFUSION. MADE SELF COMFORTABLE IN RECLINER. CALL LIGHT AND REMOTE GIVEN TO PATIENT. HISTORY AND ORDERS REVIEWED. REASESSMENT AND VS OBTAINED. RT CHEST PORTACATH ALREADY ACCESSED AND IN PLACE UPON ARRIVAL TO UNIT. PORTACATH WITH BRISK BLOOD RETURN AND FLUSHES WELL, DRESSING C/D/I.
[2018-10-28 09:06] VITALS: BP 142/57
--- NOTE | 2018-10-28 09:26 | NUR ---
ANTIBIOTIC INFUSION STARTED ORDERED.
--- NOTE | 2018-10-28 10:30 | NUR ---
ANTIBIOTIC INFUSION COMPLETED AT 1030. PATIENT TOLERATES MEDICATION WELL. PORTACATH FLUSHED WITH NS 20MLS AND PORT PACKED WITH HEPARIN SOLUTION 5MLS OF 100UNIT/ML SOLUTION. DISCHARGE INSTRUCTIONS REVIEWED. PATIENT DEPARTS FOR HOME WITH AT 1032.
== END ==
LOC: M.INFUS 21:00
DX: N39.0 Urinary tract infection, site not specified (principal); Z16.35 Resistance to multiple antimicrobial drugs

== ENCOUNTER → 2019-02-24 | Day surgery (SDC) | payer MEDICARE, OTHER ==
[2019-02-24 14:19] LABS: HEMATOCRIT 30.7 % (42.0-52.0); HEMOGLOBIN 10.3 gm/dL (14.0-18.0); MCH 33.1 pg (26.0-34.0); MCHC 33.5 g/dL (28.0-37.0); MCV 98.9 fL (80.0-100.0); MPV 7.2 fl. (7.2-11.1); RBC 3.1 mil/uL (4.50-6.00); RDW-CV 14.2 % (10.5-14.5); WBC 6.6 thou/uL (4.0-11.0)
[2019-02-24 14:27] LABS: CALCIUM 8.9 mg/dL (8.5-10.1); POTASSIUM 4.5 mmol/L (3.5-5.1)
[2019-02-24 14:34] LABS: ALBUMIN 3.4 g/dL (3.4-5.0); TOTAL BILIRUBIN 0.2 mg/dL (<0.1-1.0); TOTAL PROTEIN 6.7 g/dL (6.4-8.2)
--- NOTE | 2019-02-24 14:45 | EKG ---
[place] [address] ELECTROCARDIOGRAM REPORT Name: YULIET,VAL Reji Room: [facility]#: [id number] Admission: 02/24/19 Attend Phys: Omi Rosas MD Discharge: Date of : 33 Report #: [id number] THIS REPORT FOR: //name// [facility] Test Date: 2019-02-24 Test Time: 14:04:06 Pat Name: VAL HORVATH Department: Room: Gender: M Associate Professor Of Sociology: : 1935 Requested By: Omi Rosas Order Number: [id number] Reading MD: Rishi Tellez Measurements Intervals [place] Rate: 55 P: 41 MD: 196 QRS: -9 QRSD: 98 T: 18 QT: 437 QTc: 418 Interpretive Statements Sinus rhythm Atrial premature complex Probable left ventricular hypertrophy Anterior Q waves, possibly due to LVH Compared to ECG 07/16/2018 14:25:55 Atrial premature complex(es) now present Electronically Signed On 02-24-2019 14:45:19 CDT by Rishi Tellez [email or web address] <ELECTRONICALLY SIGNED> By: Rishi Tellez MD, [facility] 02/24/19 1445 1404 1404 Rishi Tellez MD, [facility] /EPI
--- NOTE | 2019-03-09 17:15 | OP ---
[address] [address] OPERATIVE REPORT Name: VAL HORVATH Room: [facility].#: [id number] Admission: 02/24/19 Attend Phys: Omi Rosas MD Discharge: Date of : 33 Report #: [id number] THIS REPORT FOR: //name// CC: [facility] Surya Rosas DATE OF SERVICE: 02/24/2019 PREOPERATIVE DIAGNOSES: Advanced bladder cancer with bilateral ureteral obstruction, gross hematuria and radiation cystitis. POSTOPERATIVE DIAGNOSES: Advanced bladder cancer with bilateral ureteral obstruction, gross hematuria and radiation cystitis. PROCEDURE PERFORMED: Cystoscopy with difficult bilateral ureteral extent exchange (due to the fact that bladder capacity is less than 10th of normal). Visualization is poor, requires manipulating the tip of the stent to the urethral meatus and passage of a wire and then subsequent cystoscopy and all of which was at least 4 times longer than usual period of time with great difficulty of losing access. Fulguration of oozing of bladder wall and change of suprapubic catheter. SURGEON: Omi Rosas MD COMPLICATIONS: None. DRAINS: Include 16-Yakut suprapubic tube bilateral 6 x 26 cm double J ureteral stents. BLOOD LOSS: Less than 50 mL. ANESTHESIA: General. COMPLICATIONS: None. SPECIMENS: None. DRAINS: None. STATEMENT OF MEDICAL INDICATION: This is an 83-year-old male with advanced small cell carcinoma of the bladder. He has both locally advanced as well as metastatic. He has been managed with bilateral ureteral stents for chronic renal insufficiency and recently has had an increase in his creatinine by nearly 1 point. He is due for ureteral stent exchange, [place] [address] OPERATIVE REPORT Name: VAL HORVATH Reji Room: [facility]#: [id number] Admission: 02/24/19 Attend Phys: Omi Rosas MD Discharge: Date of : 33 Report #: [id number] the operating room and is extremely difficult as his bladder capacity is only approximately 30-50 mL. Therefore, visualization is very poor and access is very tenuous due to the malignancy invading the bladder wall. The patient has also experienced difficulty since his suprapubic catheter was changed last week, so wanted that exchanged as well. So, following informed consent discussion of the procedure risks, potential complications including inability to change the stents with a suprapubic catheter, sepsis, gross hematuria with clot retention, injury to the urinary tract, adjacent structures or inability to replace the stents. DESCRIPTION OF PROCEDURE: Following the informed consent, the patient was taken to the operating room and placed under general anesthesia. He was prepped and draped in sterile fashion in the dorsal lithotomy position. Initially, the 16-Yakut suprapubic catheter was removed and replaced. He was irrigated initially only drained around the catheter and then a small amount of mucus was obtained. It was uncertain whether this was in the bladder or not and therefore proceeded with the cystoscopic portion of the procedure with a catheter plug in place. Cystoscopy was carried out. The patient has a normal anterior urethra. He has narrowing and very high bladder neck, making it access to the bladder difficult. Once in the bladder again irrigant just squirts back around the scope due to the tiny bladder capacity. One of the stents was identified, grasped using a flexible grasper and brought out to the urethral meatus and with a combination of endoscopic and fluoroscopic guidance, we were able to advance a guidewire up to the renal pelvis. Then, the cystoscope was inserted back over the wire and a 6 x 26 cm stent was placed with a coil in the renal pelvis and a coil in the bladder. Next, attention was directed to the left side where the stent was once again grasped and removed under fluoroscopy. There was only approximately 2 cm of the stent, left within the ureter, so access was very tenuous. A floppy tipped guidewire was again advanced through this with a combination of fluoroscopic and cystoscopic guidance until there was a coil in the renal pelvis. Eventually then a 6 x 26 cm stent was able to be placed on the left side as well. Inspection then was carried out of the balloon in the bladder. With irrigation through the catheter, it squirts freely through the open bladder neck and urethra and with irrigation through the bladder it drains freely through the suprapubic catheter. There was a moderate amount of oozing along the posterior bladder wall due to the manipulation and Bugbee electrode was used to fulgurate multiple sites as they could be visualized. Again, at the conclusion of the procedure, the suprapubic tube was snugged up against the bladder and abdominal wall. It irrigated freely with luz colored urine. The patient was given a Uro-Jet per urethra and a B and O suppository. This concluded the procedure and returned to recovery room in satisfactory condition. <ELECTRONICALLY SIGNED> By: Omi Rosas MD 03/09/19 1715 1609 1855Omi Rosas MD /josé
== END | disposition home or self-care (01) ==
LOC: M.SUR 06:31
PROVIDERS: Urology
DX: Z46.6 Encounter for fitting and adjustment of urinary device (principal); C67.9 Malignant neoplasm of bladder, unspecified; N13.5 Crossing vessel and stricture of ureter without hydronephrosis; R31.0 Gross hematuria; N30.40 Irradiation cystitis without hematuria; N18.9 Chronic kidney disease, unspecified; Z79.899 Other long term (current) drug therapy

== ENCOUNTER 2019-03-27 07:48 | Emergency (ER) | payer MEDICARE, OTHER ==
[~2019-03-27] VITALS: Ht 182.9 cm; Wt 78.9 kg
[2019-03-27 07:53] VITALS: BP 155/70
== END 2019-03-27 08:25 | disposition home or self-care (01) ==
LOC: M.ERS 07:48
DX: T83.198A Other mechanical complication of other urinary devices and implants, initial encounter (principal); E03.9 Hypothyroidism, unspecified; I48.91 Unspecified atrial fibrillation; K21.9 Gastro-esophageal reflux disease without esophagitis; Z96.0 Presence of urogenital implants; Z85.51 Personal history of malignant neoplasm of bladder; Z95.2 Presence of prosthetic heart valve; Z85.21 Personal history of malignant neoplasm of larynx; Y84.8 Other medical procedures as the cause of abnormal reaction of the patient, or of later complication, without mention of misadventure at the time of the procedure; Y92.89 Other specified places as the place of occurrence of the external cause

== ENCOUNTER → 2019-06-16 | Day surgery (SDC) | payer MEDICARE, OTHER ==
[~2019-06-16] MED LIST changes: +MACRODANTIN100 MG PO
--- NOTE | 2019-06-27 08:07 | OP ---
[address] [address] OPERATIVE REPORT Name: YULIETVAL M Room: [facility].#: [id number] Admission: 06/16/19 Attend Phys: Omi Rosas MD Discharge: Date of : 33 Report #: [id number] THIS REPORT FOR: //name// CC: [facility] Surya Rosas DATE OF SERVICE: 06/16/2019 PREOPERATIVE DIAGNOSIS: Bilateral ureteral obstruction secondary to bladder cancer and need for suprapubic catheter. POSTOPERATIVE DIAGNOSIS: Bilateral ureteral obstruction secondary to bladder cancer and need for suprapubic catheter. PROCEDURE PERFORMED: Cystoscopy, after change out of suprapubic tube with a 16-Maltese catheter prepped and draped in sterile fashion in the suprapubic region. The 16-Maltese catheter was replaced. A 5 mL placed in the balloon. Next, cystoscopy was carried out. The patient has normal anterior urethra. The bladder neck was nearly completely obstructed with scarring at that level from prior radiation and likely from tumor. A Pollack catheter was placed through this and essentially bladder neck contracture release was carried out. Following this, then a cystoscopy again reveals only about 30 mL bladder. The right ureteral stent was grasped and brought out through the meatus. Wire threaded up under fluoroscopic guidance and then with the cystoscope, a 6 x 26 cm stent was placed with a coil in renal pelvis and a coil in the bladder. Identical procedure was performed on the left side with a change out of the new stent. Again, it does appear the tumor is advancing across the posterior bladder wall versus radiation changes to the bladder neck and has been obstructed and again advised the patient that he should have bilateral nephrostomy tubes as these get more and more difficult each time to try to change out the ureteral stents. Following this, then a Uro-Jet was injected per urethra. The patient was given a B and O suppository and returned to recovery room in satisfactory condition. <ELECTRONICALLY SIGNED> By: Omi Rosas MD 06/27/19 0807 1230 [id number] Rosas MD /nt
== END | disposition home or self-care (01) ==
LOC: M.SUR 08:20
DX: C67.9 Malignant neoplasm of bladder, unspecified (principal); N13.5 Crossing vessel and stricture of ureter without hydronephrosis; D64.9 Anemia, unspecified; Z98.890 Other specified postprocedural states; Z79.899 Other long term (current) drug therapy

== ENCOUNTER 2019-09-24 07:44 | Inpatient (IN) | payer MEDICARE, OTHER ==
[~2019-09-24] VITALS: Ht 182.9 cm; Wt 108.9 kg
[~2019-09-24 07:44] MED LIST changes: +CIPRO250 M2 PO; +CRANBERRY425 MG PO; +VITAMIN D-40010 MCG PO
[2019-09-24 07:55] VITALS: BP 150/51
[2019-09-24] MEDS ORDERED: LOMOTIL 2.5-0.01 TAB PO (08:03)
[2019-09-24] MEDS ORDERED: PREPARATION H26 GM TOP (08:04)
[2019-09-24] MEDS ORDERED: ONDANSETRON ODT8 MG PO (08:05)
[2019-09-24] MEDS ORDERED: ANODYNE LPT 2.1 EACH TOP (08:05)
[2019-09-24] MEDS ORDERED: PHENAZOPYRIDIN200 M2 PO (08:06)
[2019-09-24] MEDS ORDERED: PROBIOTIC1 EAC7 PO (08:07)
[2019-09-24] MEDS ORDERED: MIRALAX119 GM PO (08:07)
[2019-09-24] MEDS ORDERED: CHEMO MED (08:08)
[2019-09-24 09:08] LABS: URINE BLOOD 3+ (Negative); URINE CLARITY CLEAR; URINE COLOR YELLOW; URINE GLUCOSE-RANDOM NEGATIVE (Negative); URINE KETONES TRACE (Negative); URINE PROTEIN 3+ (Negative)
[2019-09-24 09:10] LABS: ICTOTEST (BILI CONFIRMATORY) Negative (Negative); URINE BILIRUBIN 1+ (Negative); URINE LEUKOCYTES-REFLEX 3+ (Negative); URINE NITRITE-REFLEX POSITIVE (Negative)
[2019-09-24 09:11] LABS: HEMATOCRIT 24.6 % (42.0-52.0); HEMOGLOBIN 8.2 gm/dL (14.0-18.0); MCH 34.2 pg (26.0-34.0); MCHC 33.6 g/dL (28.0-37.0); MCV 101.8 fL (80.0-100.0); MPV 7.3 fl. (7.2-11.1); NUCLEATED RBCS 0 /100WBC; PLATELET COUNT* 161 thou/uL (150-400); RBC 2.41 mil/uL (4.50-6.00); RDW-CV 14.5 % (10.5-14.5); WBC 10.8 thou/uL (4.0-11.0)
[2019-09-24 09:19] LABS: CALCIUM 8.5 mg/dL (8.5-10.1); POTASSIUM 5.2 mmol/L (3.5-5.1)
[2019-09-24 09:24] LABS: TOTAL BILIRUBIN 0.3 mg/dL (<0.1-1.0); TOTAL PROTEIN 6.3 g/dL (6.4-8.2)
[2019-09-24 09:47] LABS: CASTS None Seen /LPF (None Seen); CRYSTALS None Seen /LPF (None Seen); MUCUS None Seen strn/LPF (None Seen); SQUAMOUS 0-3 Few /LPF (0-3); URINE RBC >20 Many /HPF (0-2); URINE WBC-REFLEX >25 Many /HPF (0-5)
--- NOTE | 2019-09-24 09:47 | NUR ---
SPOKE WITH ANUEL LACKEY WITH 'S OFFICE, ORDERS PLACED FROM CONVERSATION.
[2019-09-24 09:54] LABS: ABSOLUTE EOSINOPHILS 0.1 thou/uL (0.0-0.7); ABSOLUTE LYMPHOCYTES 0.4 thou/uL (0.8-5.3); ABSOLUTE MONOCYTES 0.5 thou/uL (0.0-1.2); ABSOLUTE NEUTROPHILS 9.7 thou/uL (1.6-8.1); METAMYELOCYTES 2 %; PLATELET ESTIMATE ADEQUATE
--- NOTE | 2019-09-24 10:56 | NUR ---
PT REFUSING FOR SECOND SET OF PERIPHERAL BLOOD CX TO BE DRAWN, ONLY SET DRAWN FROM PORT WAS SENT TO LAB. PER DR. HANNAH, START ABX DESPITE SECOND SET OF BLOOD CULTURES NOT DRAWN.
--- NOTE | 2019-09-24 13:48 | EKG ---
[place] [address] ELECTROCARDIOGRAM REPORT Name: YULIET,VAL Reji Room: [place] [address] ADM IN M.R.#: [id number] Admission: 09/24/19 Attend Phys: Jordy reis Sa Discharge: Date of : 33 Date of Service: 09/24/19 0831 Report #: [id number] THIS REPORT FOR: //name// [facility] ED Test Date: 2019-09-24 Test Time: 08:31:14 Pat Name: VAL HORVATH Department: Room: [facility] Gender: M Conservation Agent: [facility] : 1935 Requested By: Joss Chahal Order Number: [id number] MD: Rishi Tellez Measurements Intervals [place] Rate: 60 P: 43 IN: 187 QRS: -27 QRSD: 99 T: 25 QT: 419 QTc: 419 Interpretive Statements Sinus rhythm septal q waves noted Borderline left axis deviation Baseline wander in lead(s) V2,V3 Compared to ECG 02/24/2019 14:04:06 Atrial premature complex(es) no longer present Left ventricular hypertrophy no longer present Electronically Signed On 09-24-2019 13:47:43 TAPPING MACHINE OPERATOR AUTOMATIC by Rishi Tellez [email or web address] <ELECTRONICALLY SIGNED> By: Rishi Tellez MD, [facility] 09/24/19 1347 0 0 Rishi Tellez MD, [facility] /EPI
--- NOTE | 2019-09-24 14:03 | NUR ---
SPOKE TO BELINDA WITH NEPHROLOGY, WANTS A PT/INR STAT. SPOKE TO DR WASHINGTON
[2019-09-24 14:08] LABS: PROTIME 10.6 Seconds (9.20-11.50)
[2019-09-24 14:49] VITALS: BP 143/53
[2019-09-24 18:45] VITALS: BP 102/47
[2019-09-24 20:15] VITALS: BP 147/95
--- NOTE | 2019-09-24 20:34 | NUR ---
VSS, DROWSY- EXTREME PAIN 04/30, FAMILY REPORTS BASELINE IS A&OX4, ST ON TELE, REC FROM CARD RUNNER AT 1745, NEPH TUBES PLACED, SUPRAPUBIC CATHETER, PURULENT DRAINAGE FROM CATHETER, PURULENT DRAINAGE IN LEFT NEPH TUBE, HOURLY ROUNDING PERFORMED, FAMILY AT BEDSIDE. URETER STENTS IN PLACE BILATERALLY ALSO.
[2019-09-25] VITALS (32 sets, daily range): BP systolic 82–149; BP diastolic 35–58
--- NOTE | 2019-09-25 04:18 | NUR ---
ASSUMED CARE OF PT AT 1900. PT IS ALERT AND ORIENTED. VSS. PERRLA. PT REPORTS ONGOING PAIN IN HIS PENIS AND ABDOMAN. PT IS GETTING FENTANL FOR PAIN. PT STATES THAT HE DOES NOT WANT TO BE BOTHERED. PT HAS BILAT NEPHROSTOMY TUBES. LEFT NEPHROSTOMY BAG HAS CLOUDY PURULENT DRAINAGE. THE RIGHT ONE IS MOSTLY BLOODY. PT ALSO HAS A SUPRAPUBIC CATHETER. PT IS SINUS TACH ON THE TELEMETRY. PT IS RESTING COMFORTABLY IN BED. RESPIRATIONS ARE EVEN AND NONLABORED. WILL CONTINUE TO MONITOR PT.
[2019-09-25 06:40] LABS: MCHC 32.4 g/dL (28.0-37.0); MCV 101.9 fL (80.0-100.0); MPV 7.5 fl. (7.2-11.1); RBC 1.61 mil/uL (4.50-6.00); RDW-CV 14.7 % (10.5-14.5)
[2019-09-25 06:47] LABS: CALCIUM 7.9 mg/dL (8.5-10.1); CREATININE 6.8 mg/dL (0.6-1.3)
[2019-09-25 06:48] LABS: POTASSIUM 6.6 mmol/L (3.5-5.1)
[2019-09-25 06:49] LABS: HEMATOCRIT 16.4 % (42.0-52.0); HEMOGLOBIN 5.3 gm/dL (14.0-18.0); WBC 31.6 thou/uL (4.0-11.0)
[2019-09-25 06:50] LABS: ALBUMIN 2.4 g/dL (3.4-5.0); MAGNESIUM 1.5 mg/dL (1.8-2.4); PHOSPHORUS* 4.6 mg/dL (2.5-4.9)
--- NOTE | 2019-09-25 07:34 | CON ---
[address] [address] CONSULTATION Name: VAL HORVATH Room: [address] IN M.R.#: [id number] Admission: 09/24/19 Attend Phys: Jordy Lamb Discharge: Date of : 33 Report #: [id number] THIS REPORT FOR: //name// cc: Surya Khan MD, Ravindra R. MD ~ THIS REPORT FOR: //name// CC: Jordy Curiel DATE OF SERVICE: 09/24/2019 INFECTIOUS DISEASE CONSULTATION ATTENDING PHYSICIAN: Dr. Jordy Shankar. REASON FOR EVALUATION: Complicated urinary tract infection with multiple resistant organisms. HISTORY OF PRESENT ILLNESS: Chart reviewed, patient examined. This is an 84-year-old known to myself with history of bladder cancer and multiple issues with obstructive uropathy, bilateral ureteral stents, been feeling poorly per spouse in recent days. He had been evaluated and felt to have a complicated urinary tract infection and was started empirically on therapy with Macrodantin. He was confirmed to have polymicrobial growth including Achromobacter, formerly Acinetobacter as well as Enterococcus. He underwent outpatient evaluation, was found to have worsening of his renal failure with elevated BUN and creatinine, felt to have issue with the further obstruction, has had nausea as well. Denies any fevers or chills, again this is from the spouse as well as the record. He is actually in the Interventional Radiology undergoing nephrostomy tube placements bilaterally. ALLERGIES: None known. MEDICATIONS: He was given a dose of ceftriaxone. PAST MEDICAL HISTORY: As described above, history of hypothyroidism, throat cancer, reflux, AFib, peptic ulcer disease. SOCIAL HISTORY: Former smoker. No ethanol. No illicit drug use. FAMILY HISTORY: Noncontributory. REVIEW OF SYSTEMS: Not able to obtain at this point. PHYSICAL EXAMINATION: Not performed due [place] [address] CONSULTATION Name: VAL HORVATH Reji Room: [address] IN [facility].#: [id number] Admission: 09/24/19 Attend Phys: Jordy Lamb Discharge: Date of : 33 Report #: [id number] for an extended period of time. VITAL SIGNS: Most recent vitals with temperature 98.2, pulse 74, respirations 18, blood pressure 143/53. SKIN: Warm. LABORATORY AND X-RAY DATA: Electrolytes: Sodium 139, potassium 5.2, chloride 110, bicarbonate is 12, anion gap of 17, BUN and creatinine 82 and 6.0, glucose of 123, AST 14, ALT of 23. Total protein 6.3, albumin of 3.0. Urinalysis with marked pyuria with greater than 25 white cells, 10-30 bacteria. CBC: White count of 10.8, H and H 8.2 and 24.6, platelets of 161. CT abdomen and pelvis done preprocedure showed moderate bilateral hydronephrosis and hydroureter with stents remain in place, unchanged in position since prior exam. Bladder is decompressed with a Kohler. There is some splenomegaly, diverticulosis without diverticulitis. Lactic acid 0.6. ASSESSMENT: Complicated urinary tract infection. We will dose parenterally. Repeat urine is pending. I think given the difficulty with the procedure, I imagine he needs to stay here overnight. A single dose should give us reasonable coverage given his renal failure. At this point, we will cover what we have seen in the cultures recently as last week. Certainly relieving the obstruction should improve his situation. <ELECTRONICALLY SIGNED> By: Calvin Belcher MD 09/25/19 0734 1658 [id number] Belcher MD /nt
--- NOTE | 2019-09-25 10:24 | EKG ---
[place] [address] ELECTROCARDIOGRAM REPORT Name: VAL HORVATH Reji Room: [address] ADM IN M.R.#: [id number] Admission: 09/24/19 Attend Phys: Jordy reis Sa Discharge: Date of : 31 Date of Service: 09/25/19 0931 Report #: [id number] THIS REPORT FOR: //name// [facility] Test Date: 2019-09-25 Test Time: 09:31:29 Pat Name: VAL HORVATH Department: Room: [address] Gender: M Rd Mechanical Engineer: : 1935 Requested By: Jordy Ha Order Number: [id number] Aleksandar MD: Rishi Tellez Measurements Intervals [place] Rate: 91 P: 43 WV: 167 QRS: -26 QRSD: 84 T: 45 QT: 389 QTc: 479 Interpretive Statements Sinus rhythm Inferior infarct, old Anterior infarct, old Baseline wander in lead(s) V3 Compared to ECG 09/24/2019 08:31:14 no change Electronically Signed On 09-25-2019 10:23:42 MIXER PIGMENT by Rishi Tellez [email or web address] <ELECTRONICALLY SIGNED> By: Rishi Tellez MD, [facility] 09/25/19 1023 Rishi Tellez MD, [facility] /EPI
--- NOTE | 2019-09-25 14:45 | NUR ---
MET WITH PT AND /KAREN TO DISCUSS HOME SITUATION/DC PLANNING. PT CONFUSED. STATES THEY LIVE TOGETHER. THAT PT IS FAIRLY INDEPENDENT. HAS A W/C THEY USED WHEN PT WAS GETTING CHEMO AND GOING TO DR WOODS. OTHERWISE USES NO EQUIPMENT. HAD HH IN PAST WITH [facility], WOULD LIKE TO USE THEM AGAIN AT DC TO HELP WITH NEPHRO TUBES. PT TO HAVE SCAN THIS AFTERNOON. ASKED DC BMX RIDER TO CONTACT [facility] TO INITIATE REFERRAL. ANTICIPATE PT WILL BE IN HOSPITAL OVER THE WEEKEND. WILL FOLLOW [facility] [phone] FAX [phone]
[2019-09-25 15:05] LABS: HEMOGLOBIN 5.3 gm/dL (14.0-18.0)
[2019-09-25 15:11] LABS: CALCIUM 8.1 mg/dL (8.5-10.1); CREATININE 6.8 mg/dL (0.6-1.3); POTASSIUM 5.7 mmol/L (3.5-5.1)
--- NOTE | 2019-09-25 15:11 | NUR ---
FAXED REFERRAL TO [facility]. CONFIRMED WITH TIFFANIE/BRETT THAT THAT PATIENT WILL PROBABLY STAY IN HOSPITAL OVER THE WEEKEND BUT ANTICIPATE DISCHARGE NEXT WEEK. PATIENT PREVIOUS CLIENT WITH [facility]. [facility] [phone]; [phone]
--- NOTE | 2019-09-25 16:27 | NUR ---
PT TO ROOM 002 FROM 228 VIA BED AT 1530.
--- NOTE | 2019-09-25 17:11 | NUR ---
PT'S FAMILY REFUSING TO ALLOW IV ACCESS FOR IV INSULIN AND CALCIUM GLUCONATE. WILL HAVE TO WAIT FOR IV TO INFUSE BEFORE ABLE TO GIVE THOSE MEDICATIONS.
--- NOTE | 2019-09-25 19:49 | NUR ---
CK WAS SEEN AT BEGINNING OF SHIFT AND SCORED SEPTIC, PROTOCOL IN PLACE. BLOOD PRESSURE WNL, ROOM AIR WITH ONLY MINIMAL BILATERAL CRACKLES PRESENT. 2/2 PULSES. HEART SOUNDS NORMAL. PATIENT ALLOWED ME TO AUSCULTE HIS ABD WITH ACTIVE BOWEL SOUNDS BUT HE REFUSED EVEN THE SLIGHTEST OF PALPATION. HE C/O PAIN TO ABD WITH MINIMAL MOVEMENT. LEFT NEPH TUBE WITH PURULENT DRAINAGE, RIGHT NEPH TUBE WITH MINIMAL RED BLOODY DRAINAGE. HGB NOTED AT 5.3 AND ORDERS FOR RBC TRANFUSE TODAY, COMPLETED. POTASSIUM 6.6 WAS TREATED PER ORDERS. CK CONTINUEDTO HAVE ABD PAIN TODAY AND HAD A CT ABD COMPLETED WITH FINDINGS REPORTED TO PRIMARY AND UROLOGY. DECISION WAS MADE WITH PRIMARY AND UROLOGY TO TRANSFER THE PATIENT TO ICU FOR FURTHER EVALUTION AND POSSIBLE IR INTERVENTION OF HEMATOMA FOUND ON CT IMAGES. REPORT WAS CALLED TO ICU AND PATIENT WAS TRANSPORTED AT 1530.
--- NOTE | 2019-09-25 19:50 | NUR ---
PT ASSESSMENT CHARTED. VSS. 1 UNIT PRBC GIVEN. REDRAW FOR HGB AT 1935. PT DROWSY. ORDER RECEIVED FOR ATIVAN PER FAMILY REQUEST. NO REPORTS OF PAIN.
[2019-09-25 20:06] LABS: APTT 41.3 Seconds (25.0-31.3); INR 1.1; PROTIME 11.5 Seconds (9.20-11.50)
[2019-09-25 20:11] LABS: HEMATOCRIT 19.8 % (42.0-52.0); HEMOGLOBIN 6.6 gm/dL (14.0-18.0)
[2019-09-25 23:54] LABS: HEMATOCRIT 21.2 % (42.0-52.0); HEMOGLOBIN 7.2 gm/dL (14.0-18.0)
[2019-09-26] VITALS (25 sets, daily range): BP systolic 89–171; BP diastolic 40–73
[2019-09-26 00:32] LABS: CALCIUM 8.2 mg/dL (8.5-10.1); CREATININE 6.5 mg/dL (0.6-1.3); POTASSIUM 5.2 mmol/L (3.5-5.1)
[2019-09-26 04:32] LABS: HEMATOCRIT 20.4 % (42.0-52.0)
[2019-09-26 04:49] LABS: CALCIUM 7.8 mg/dL (8.5-10.1); CREATININE 6.7 mg/dL (0.6-1.3); POTASSIUM 4.9 mmol/L (3.5-5.1); URIC ACID* 7.1 mg/dL (2.6-7.2)
[2019-09-27] VITALS (18 sets, daily range): BP systolic 126–169; BP diastolic 54–78
[2019-09-27 04:56] LABS: HEMATOCRIT 21.1 % (42.0-52.0); HEMOGLOBIN 7.3 gm/dL (14.0-18.0); MCH 32.2 pg (26.0-34.0); MCHC 34.7 g/dL (28.0-37.0); MPV 7.8 fl. (7.2-11.1); RBC 2.27 mil/uL (4.50-6.00); RDW-CV 16.7 % (10.5-14.5); WBC 16.8 thou/uL (4.0-11.0)
[2019-09-27 05:15] LABS: ALBUMIN 2.2 g/dL (3.4-5.0); CALCIUM 7.6 mg/dL (8.5-10.1); CREATININE 5.8 mg/dL (0.6-1.3); MAGNESIUM 1.6 mg/dL (1.8-2.4); PHOSPHORUS* 4.7 mg/dL (2.5-4.9)
[2019-09-27 05:21] LABS: MCV 92.9 fL (80.0-100.0)
[2019-09-27 05:46] LABS: POTASSIUM 3.8 mmol/L (3.5-5.1)
--- NOTE | 2019-09-27 07:32 | NUR ---
Pt reports he rested well overnight. States he is sore "all over," but denies need for pain medication. Did receive one dose of Fentanyl last pm, but refused any further doses. Pt up to BSC X2 assist at 2100, then again at 0030 X1 assist; states he felt stronger the 2nd time up. No BM but pt did pass flatus both times. Pt complains of intermittent nausea, had small amount of emesis X1. Medicated twice with Zofran. Otherwise no complaints. Pt was gruff early in shift, but pleasant for remainder. VSS. Afebrile. L nephrostomy draining clear yellow urine, R nephrostomy draining cloudy judith urine. Suprapubic catheter draining small amount blood-tinged urine. Will continue to monitor.
--- NOTE | 2019-09-27 18:54 | NUR ---
THIS INFORMATION SERVICES VICE PRESIDENT ASSUMED CARE OF PT AT 0700 PT WAS MORE PLEASANT TODAY AND WILLING TO PARTICIPATE IN CARE UP TO THE COMMODE AND WILLING TO TURN A TIME OR TWO THROUGHOUT SHIFT R NEPHRO TUBE OUT PUT BLOOD TINGED 525 OUT L NEPHRO TUBE YELLOW OUTPUT 550 PT STATES HE JUST WANTS TO REST CHANGED THE SUPRAPUBIC CATH DRESSING IT WAS SATURATED WITH CLEAR FLUIDS AND THE DRAINAGE IN THE BAG IN DARK RED
[2019-09-28] VITALS (16 sets, daily range): BP systolic 126–173; BP diastolic 53–74
[2019-09-28 04:51] LABS: HEMATOCRIT 20.7 % (42.0-52.0); HEMOGLOBIN 7.1 gm/dL (14.0-18.0); MCH 32.4 pg (26.0-34.0); MCHC 34.3 g/dL (28.0-37.0); MCV 94.5 fL (80.0-100.0); MPV 7.7 fl. (7.2-11.1); RBC 2.19 mil/uL (4.50-6.00); RDW-CV 16.1 % (10.5-14.5); WBC 12.6 thou/uL (4.0-11.0)
[2019-09-28 05:05] LABS: ALBUMIN 2.1 g/dL (3.4-5.0); CALCIUM 7.4 mg/dL (8.5-10.1); CREATININE 5.1 mg/dL (0.6-1.3); MAGNESIUM 1.7 mg/dL (1.8-2.4); PHOSPHORUS* 3.8 mg/dL (2.5-4.9); POTASSIUM 3.3 mmol/L (3.5-5.1)
--- NOTE | 2019-09-28 07:23 | NUR ---
Pt reports he rested well overnight. Up to BSC last night at 2014; passed flatus but no BM. States he has had intermittent nausea and pain, but denied need for anti-emetic or analgesic. VSS. Nephrostomy tubes draining clear yellow bilat. Will continue to monitor.
--- NOTE | 2019-09-28 11:16 | NUR ---
ICU rounds: Pt tele status. SW/CM to continue to follow towards dc goal of home with and [facility] HH services to follow if needed at dc.
--- NOTE | 2019-09-28 17:49 | NUR ---
THIS A OPERATOR ASSUMED CARE OF PT AT 0700 PT PROGRESSED TOWARD GOALS TODAY OVERALL MORE PLEASANT AND WILLING TO PARTICIPATE IN CARE PT UP TO COMMODE AND WALKED TO THE DOOR OF THE ROOM AND BACK EATING SMALL AMOUNTS AT EACH MEAL STATING HE ISN'T THAT HUNGRY AND CO OF NAUSEA AT TIMES NEPHRO TUBES INTACT DRAINING YELLOW URINE RQUAL ON BOTH SIDES
[2019-09-29 03:36] LABS: HEMATOCRIT 20.6 % (42.0-52.0); HEMOGLOBIN 7.1 gm/dL (14.0-18.0)
[2019-09-29 04:00] LABS: ALBUMIN 2.1 g/dL (3.4-5.0); CALCIUM 7.1 mg/dL (8.5-10.1); CREATININE 4.4 mg/dL (0.6-1.3); MAGNESIUM 2.2 mg/dL (1.8-2.4); PHOSPHORUS* 3.2 mg/dL (2.5-4.9); POTASSIUM 3.2 mmol/L (3.5-5.1)
--- NOTE | 2019-09-29 08:20 | NUR ---
PROGRESSING TOWARDS GOALS, RESTING QUIELTY WITH EYES CLOSED MOST OF NOC, EASILY AROUSABLE TO VERBAL STIMULI, DENIES PAIN, C/O NAUSEA, ZOFRAN 4MG IVP X2 FOR C/O NAUSEA, NO EMESIS, PT VERBALIZED ZOFRAN SOMEWHAT HELPFUL FOR NAUSEA, STATES HAS CONSTANT NAUSEA ALL THE TIME, UP TO BSC X2 WITH X1 ASSIST, NO BM, BILAT NEPHROSTOMY TUBES PATENT TO DD YELLOW URINE, AFEBRILE, NSR TRACING ROLLER SETTER. AND DAUGHER AT BESIDE DURING HS, CALL LIGHT IN REACH, SAFETY, MAINTAINED.
[2019-09-29 09:45] VITALS: BP 126/54
--- NOTE | 2019-09-29 11:00 | NUR ---
ICU ROUNDS-IS TELE STATUS. ALERT AND ORIENTED. HAS 2 ULTRA SOUNDS TODAY. RADHA.NEPHROSTOMY TUBES DRAINING WELL. ALSO HAS SPC. CONTINUES TO HAVE NAUSEA ON AND OFF. CM WILL FOLLOW.
[2019-09-29 15:56] VITALS: BP 143/64
--- NOTE | 2019-09-29 16:00 | NUR ---
PT B/P FROM 09 DID NOT OUTPATIENT INTERVIEWING CLERK IT IS 126/54
--- NOTE | 2019-09-29 17:09 | NUR ---
PT TRANSFERRED TO ROOM 226 AT 1645 ALL BELONGING AND MEDICATIONS SENT WITH PT WIDE AT BEDSIDE TRANSPORTED VIA WHEELCHAIR BY NURSING STAFF
--- NOTE | 2019-09-29 17:44 | NUR ---
PT REFUSING ORAL POTASSIUM. K 3.2. NEPHROLOGY PAGED.
--- NOTE | 2019-09-29 18:40 | NUR ---
PT TRANSFERRED FROM ICU TO TELEMETRY. PT A/O X'S 4. NO C/O PAIN. RECEIVED ORDERS FOR IV POTASSIUM ONE TIME TO CORRECT K LEVEL OF 3.2. EXPRESSED CONCERN ABOUT LEARNING HOW TO MANAGE NEPHROSTOMY TUBES AT HOME. DISCUSSED WITH SPOUSE S/S OF TUBES NOT DRANING, S/S OF INFECTION, MONITOR OUTPUT. OFFERED TO DEMONSTRATE HOW TO DRAIN NEPH TUBE, SPOUSE STATED SHE IS ABLE TO DO THTA.
[2019-09-29 20:00] VITALS: BP 137/53
[2019-09-30] VITALS (7 sets, daily range): BP systolic 123–167; BP diastolic 51–63
[2019-09-30 04:55] LABS: ALBUMIN 2.3 g/dL (3.4-5.0); CALCIUM 7.4 mg/dL (8.5-10.1); CREATININE 3.9 mg/dL (0.6-1.3); POTASSIUM 3.4 mmol/L (3.5-5.1)
--- NOTE | 2019-09-30 05:52 | NUR ---
ASSESSMENT COMPLETED CHARTED, MEDICATIONS ADMINISTERED PER MAR. HOURLY ROUNDING FOR SAFETY. IN BED WITH BED ALARM ON AND CALL LIGHT WITHIN REACH.
--- NOTE | 2019-09-30 10:24 | NUR ---
ASSUMED CARE OF PT AT 0730. PT RESTING IN BED. PT A&0X4, FORGETFUL AT TIMES. PT NON COMPLIANT FIRST THING THIS AM- STATING "GET OUT OF MY ROOM- I NEED REST, I DO NOT NEED ANYONE BOTHERING ME". PT NOTED TO BE IN ROOM SHORTLY AFTER AND THIS RN ATTEMPTED TO ASSESS PT AGAIN- ABLE TO WITH AT BEDSIDE. PT DENIES ANY PAIN OR SHORTNESS OF BREATH AT THIS TIME. IN CONTACT ISOLATION FOR VRE IN URINE. TRACING SB/SR ON THE NUCLEAR PHYSICS TEACHER. ON RA SAT UPPER 90'S. PT UP WITH 1 ASSIST. BANDA TO DEPENDENT DRAINAGE. BILATERAL NEPHROSTOMY TUBES TO RIGHT AND LEFT FLANK DRAINING LIGHT YELLOW. PT GOAL FOR TODAY IS COMPLIANCE WITH NURSING STAFF, REPLACE POTASSIUM PER ELECTROLYTE PROTOCOL, UROLOGY AND NEPHROLOGY CONSULT IN PLACE AND INCREASE ACTIVITY. AM ASSESSMENT CHARTED. MEDICATIONS PER MAR. PT REPOSITIONED EVERY 2 HOURS FOR COMFORT WHEN COMPLIANT. HOURLY ROUNDING OBSERVED. BED IN LOW POSITION. BED ALARM IN PLACE. FALL PRECAUTIONS IN PLACE. CALL LIGHT WITHIN REACH. WILL CONTINUE PLAN OF CARE.
--- NOTE | 2019-09-30 17:55 | NUR ---
NO ACUTE CHANGES THROUGHOUT SHIFT. REFER TO CHARTING. PT MORE COMPLIANT WITH NURSING STAFF THIS AFTERNOON AFTER RECEIVING ONE TIME DOSE OF ATIVAN IVP. POTASSIUM BEING REPLACED PER ELECTROLYTE PROTOCOL. REMAINED AT BEDSIDE THROUGHOUT ENTIRE SHIFT. SUPRAPUBIC BANDA CATHETER AND BILATERAL NEPHROSTOMY TUBES WITH GOOD URINE OUTPUT-LIGHT YELLOW. CONTINUES TO TRACE SB/SR ON THE SLASHER TENDER. ON RA SAT UPPER 90'S. PT DENIES ANY PAIN OR SHORTNESS OF BREATH THROUGHOUT AFTERNOON. UP WITH 1 ASSIST TO BATHROOM. IN CONTACT ISO FOR VRE IN URINE. MEDICATIONS PER SEP. PT REPOSITIONED EVERY 2 HOURS FOR COMFORT. HOURLY ROUNDING OBSERVED. BED IN LOW POSITION. BED ALARM IN PLACE. FALL PRECAUTIONS IN PLACE. CALL LIGHT WITHIN REACH. WILL CONTINUE PLAN OF CARE.
[2019-10-01 04:24] VITALS: BP 140/58
[2019-10-01 05:23] LABS: HEMATOCRIT 20.1 % (42.0-52.0); MCH 33.4 pg (26.0-34.0); MCHC 34.7 g/dL (28.0-37.0); MCV 96.1 fL (80.0-100.0); MPV 8.3 fl. (7.2-11.1); RBC 2.09 mil/uL (4.50-6.00); RDW-CV 15.9 % (10.5-14.5); WBC 9.3 thou/uL (4.0-11.0)
--- NOTE | 2019-10-01 05:27 | NUR ---
ASSESSMENT COMPLETED CHARTED, MEDICATIONS ADMINISTERED PER MAR. HOURLY ROUNDING FOR SAFETY. IN BED WITH BED ALARM ON AND CALL LIGHT WITHIN REACH. FAMILY AT BEDSIDE, NO C/O PAIN OR DISCOMFORT NOTED AT THIS TIME.
[2019-10-01 05:45] LABS: ALBUMIN 2.2 g/dL (3.4-5.0); CALCIUM 7.7 mg/dL (8.5-10.1); CREATININE 3.6 mg/dL (0.6-1.3); MAGNESIUM 1.9 mg/dL (1.8-2.4); PHOSPHORUS* 2.8 mg/dL (2.5-4.9); POTASSIUM 3.5 mmol/L (3.5-5.1)
--- NOTE | 2019-10-01 05:48 | NUR ---
PT FAMILY IS REQUESTING THAT THE PT RECIEVE ANOTHER UNIT OF BLOOD THEY BELIEVE 7.0 IS TOO LOW AND HIS DOCTOR WOULD WANT HIM ABOVE AN 8 BEFORE GOING HOME. I INFORMED THEM THAT I WOULD RELAY THE REQUEST THAT WILL BE THE DOCTORS CALL. THEY HAVE ALSO REQUESTED CASE MANAGEMENT TO WORK WITH THEM TO ENSURE HOME HEALTH IS SET UP WITH EVERYTHING READY PRIOR TO LEAVING ALONG WITH EDUCATION ON CARING FOR THE NEPHRO TUBES.
[2019-10-01 08:30] VITALS: BP 144/76
[2019-10-01 11:43] VITALS: BP 136/69
--- NOTE | 2019-10-01 13:04 | NUR ---
ASSUMED CARE OF PT AT 0730. PT RESTING AT EDGE OF BED. AND DAUGHTER AT BEDSIDE. A&0X4, DENIES ANY PAIN OR SHORTNESS OF BREATH AT THIS TIME. TRACING SR ON THE DRUG AND ALCOHOL COUNSELOR. ON RA SAT UPPER 90'S. CARLITA CATH DRESSING CHANGED. IN CONTACT ISOLATION FOR VRE. BANDA CATHETER AND BILATERAL NEPHROSTOMY TUBES TO DEPENDENT DRAINAGE-LIGHT YELLOW URINE. PT UP WITH 1 ASSIST TO BATHROOM. PT GOAL FOR TODAY IS INCREASE ACTIVITY, UP TO CHAIR FOR MEALS AND MONITOR LABS. AM ASSESSMENT CHARTED. MEDICATIONS PER MAR. PT REPOSITIONS SELF. HOURLY ROUNDING OBSERVED. BED IN LOW POSITION. CALL LIGHT WITHIN REACH. WILL CONTINUE PLAN OF CARE.
[2019-10-01 18:24] VITALS: BP 143/52
--- NOTE | 2019-10-01 18:24 | NUR ---
NO ACUTE CHANGES THROUGHOUT SHIFT. REFER TO CHARTING. CARLITA CATH DRESSING CHANGED. LABS IN AM. GOOD URINE OUTPUT THROUGH BANDA AND BILATERAL NEPHROSTOMY TUBES. AT BEDSIDE THROUGHOUT SHIFT. MEDICATIONS PER MAR. PT REPOSITONS SELF. HOURLY ROUNDING OBSERVED. BED IN LOW POSITION. CALL LIGHT WITHIN REACH. WILL CONTINUE PLAN OF CARE.
[2019-10-01 20:00] VITALS: BP 153/56
[2019-10-02] VITALS: BP 151/64
[2019-10-02 04:00] VITALS: BP 147/63
[2019-10-02 05:11] LABS: HEMATOCRIT 20.8 % (42.0-52.0); HEMOGLOBIN 7.1 gm/dL (14.0-18.0); MCH 32.7 pg (26.0-34.0); MCV 96.3 fL (80.0-100.0); MPV 8.2 fl. (7.2-11.1); RBC 2.16 mil/uL (4.50-6.00); RDW-CV 16.1 % (10.5-14.5); WBC 7.1 thou/uL (4.0-11.0)
[2019-10-02 05:23] LABS: CALCIUM 7.7 mg/dL (8.5-10.1); CREATININE 3.3 mg/dL (0.6-1.3); MAGNESIUM 1.9 mg/dL (1.8-2.4); POTASSIUM 3.5 mmol/L (3.5-5.1)
--- NOTE | 2019-10-02 05:45 | NUR ---
ASSESSMENT COMPLETED CHARTED, MEDICATIONS ADMINISTERED PER MAR. HOURLY ROUNDING FOR SAFETY. IN BED WITH BED ALARM ON AND CALL LIGHT WITHIN REACH. NO C/O PAIN OR DISCOMFORT NOTED, ALL NEEDS MET AT THIS TIME.
[2019-10-02] MEDS ORDERED: SENNA-TIME S T1 EACH PO (11:10)
[2019-10-02] MEDS ORDERED: AMPICILLIN TRI250 MG PO (11:10)
[2019-10-02] MEDS ORDERED: OMEPRAZOLE40 MG PO (11:10)
[2019-10-02] MEDS ORDERED: FENTANYL PATCH75 MCG TRANSDERM (11:11)
--- NOTE | 2019-10-02 15:03 | NUR ---
Pt to dc home with today. SW called [facility] and spoke with intake who accepted pt already and informed of pt dc as well as faxed final orders, med list, dc summary.
[2019-10-02 15:21] VITALS: BP 148/67
[2019-10-02 17:16] VITALS: BP 117/46
--- NOTE | 2019-10-02 18:58 | NUR ---
PATINET RESTING IN BED. UP WITH STANDBY ASSISTANCE TO BATHROOM AND WITH IN ROOM MOBILITY. APPROVAL TO DISCHARGE HOME BY ID, PRIMARY, AND RENAL. AWAITING UROLOGY APPROVAL. PRIMARY GAVE ORDERS TO TRANSFUSE 1 UNIT PRBC IF APPROVAL FROM ALL CONSULTS OBTAINED FOR DISCHARGE. BLLOD READY AND ABLE TO BE ADMINISTERED ONCE UROLOGY GIVES APPROVAL FOR DISCHARGE TO HOME. VITAL SIGNS STABLE. MINIMAL OUTPUT FROM NEPHROSTOMY DRAINS WITH SEROUS DRAINAGE. LCTA ILATERALLY. 2/2 PULSES. CONTINUED CONTACT ISOLATION FOR VRE IN URINE. RIGHT CHEST PORT STILL ACCESSED FOR FLUIDS AND BLOOD BRAWS. CHRONIC SUPRAPUBLIC CATH IN PLACE WITH LIGHT YELLOW OUTPUT. PATINET DENIES PAIN. NEED FOR DAY OF DISCHARGE REINFORCMENT EDUCATION FOR CARE OF NEPHROSTOMY TUBES. BOWEL MOVEMENT TODAY. HOURY ROUNDING COMPLETED FOR PATIENT SAFETY. PLAN FOR DISCHARGE TO HOME TOMORROW AFTER CLEARANCE FROM UROLOGY AND ADMINISTRATIONM OF 1 UNIT PRBC.
[2019-10-02 20:00] VITALS: BP 152/69
[2019-10-03 00:22] VITALS: BP 133/67
[2019-10-03 04:24] VITALS: BP 140/51
--- NOTE | 2019-10-03 05:01 | NUR ---
ASSESSMENT COMPLETED CHARTED, MEDICATIONS ADMINISTERED PER MAR. PT STATED CONCERNS OVER DISCHARGE AND HAS REQUESTED EDUCATION ON HOW TO CARE FOR HIS NEPHRO TUBES. HE IS ALSO CONCERNED WITH RETURNING HOME WITHOUT CONFIRMATION OF APPOINTMENT FOR HOME HEALTH. PT ISCURRENTLY ASLEEP IN BED WITH BED ALARM ON AND CALL LIGHT WITHIN REACH.
[2019-10-03 08:00] VITALS: BP 148/62
[2019-10-03 11:30] VITALS: BP 145/51
[2019-10-03] MEDS ORDERED: DIFLUCAN100 MG PO (11:55)
[2019-10-03 12:18] LABS: HEMATOCRIT 21.8 % (42.0-52.0); HEMOGLOBIN 7.3 gm/dL (14.0-18.0)
--- NOTE | 2019-10-03 15:00 | NUR ---
DRESSING TO BILAT NEPHROSTOMY TUBE CHANGED. ASSISTED IN DRESSING CHANGE. NEW STATLOCKS,CLAVES AND TRANSPARENT DRESSING APPLIED.
[2019-10-03 15:40] VITALS: BP 126/51
[2019-10-03 16:47] VITALS: BP 128/50
[2019-10-03] MEDS ORDERED: AMOXICILLIN250 MG PO (17:13)
--- NOTE | 2019-10-03 19:20 | NUR ---
ASSUMED PT CARE AT 0700, PT A&O X4, UP WITH ASSIST X1, RA, VSS, AT BEDSIDE. BUSINESS ACCOUNT EXECUTIVE TRACING SINUS ELLY/SINUS RHYTHM, FULL ASSESSMENT CHARTED. SUPRAPUBIC PATENT, DRAINING LIGHT YELLOW URINE WELL BILATERAL NEPHRO TUBES. PT AND EDUCATED ON CARES FOR NEPHRO TUBES, DRESSINGS CHANGED THIS SHIFT. PT DISCHARGED HOME AT APPROX 1715 WITH , EDUCATED ON ALL DISCHARGE INSTRUCTIONS INCLUDING CARES, MEDICATIONS, AND FOLLOW UP APPOINTMENTS. BUSINESS ACCOUNT EXECUTIVE REMOVED, HOURLY ROUNDING COMPLETED.
--- NOTE | 2019-10-04 07:44 | CON ---
[address] [address] CONSULTATION Name: VAL HORVATH Room: [address] IN M.R.#: [id number] Admission: 09/24/19 Attend Phys: Jordy Lamb Discharge: 10/03/19 Date of : 31 Report #: [id number] THIS REPORT FOR: //name// cc: Surya Khan MD, Ravindra R. MD ~ THIS REPORT FOR: //name// CC: Jordy Curiel REASON FOR CONSULTATION: This is a consultation obtained by Dr. Shankar for acute kidney injury and hyperkalemia. HISTORY OF PRESENT ILLNESS: The patient is an 84-year-old gentleman who we have seen previously for acute kidney injury on chronic kidney disease. 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 The patient has received chemotherapy and radiation. He has a suprapubic catheter in place after he developed urinary retention and ureteral strictures. He developed bilateral hydronephrosis and has had stents in place. He has a chronic kidney disease, has worsened with time from a baseline of 1.4-1.7 many years ago, now closer to 3. He gets recurrent urinary tract infection. His catheter and stents are exchanged recently. He had labs done on 03/03, which showed a BUN of 82 and creatinine of 5.5 with the urine culture showing more than 100,000 Achromobacter denitrificans and VRE. He was initiated on Macrobid and Cipro because of worsening renal function. He was advised to come to the hospital to have nephrostomies placed, which have been previously discussed with him. Yesterday, the patient had nephrostomies placed bilaterally. This morning, his left nephrostomy is draining well, but the right nephrostomy has conrado blood coming out of it. His hemoglobin has dropped almost 3 points. He has been on Ringer's lactate overnight. He also seemed to be on potassium supplements with his phosphate supplements. We were consulted to provide further management of acute kidney injury and hyperkalemia. This morning, his creatinine has bumped up to 6.8 from 6 on admission. His Bicarbonate level is down to 10. Anion gap is 18 and potassium was 6.6. PAST MEDICAL HISTORY: 1. Complex urological history as mentioned above with history of urothelial cancer, status post chemo and radiation, status post bilateral stent placements in the ureters and status post suprapubic catheter placement in the past. 2. Gradually worsening chronic kidney disease, now baseline seems to be close to 3. 3. History of GERD. 4. History of atrial fibrillation. 5. History of peptic ulcer disease. 6. History of TURBT in the past also. 7. He has a port in the right chest for [place] [address] CONSULTATION Name: VAL HORVATH Room: [address] [place] M.R.#: [id number] Admission: 09/24/19 Attend Phys: Jordy reis [place] Discharge: 10/03/19 Date of : 31 Report #: [id number] PERSONAL, SOCIAL AND FAMILY HISTORY: Reviewed from the chart. The patient is very uncomfortable and does not want to engage in any conversation. He reports significant abdominal pain overnight after the procedure. His is at bedside also mentioned that he was face down for 3 hours to get the procedure done, but the pain seems to be out of proportion for the same. No fevers have been reported. No chills. PHYSICAL EXAMINATION: GENERAL: On my examination, the patient is very uncomfortable and would not let me examine his abdomen because of the significant pain. He is awake, does answer questions appropriately. VITAL SIGNS: His blood pressure this morning 147/52, pulse rate is 92, and temperature is 37.6. HEENT: Mucous membranes are dry. LUNGS: Diminished, but clear bilaterally. ABDOMEN: Not examined because the patient was in severe pain. He did get his touch his abdomen very briefly, but reports tenderness, no matter where it is touched. EXTREMITIES: Lower extremity exam shows no edema. NEUROLOGIC: Grossly normal. Suprapubic catheter is seen in place, bilateral nephrostomies are noticed. Right nephrostomy bag full of blood. LABORATORY DATA: Reviewed. This morning, hemoglobin has dropped from 8.2 yesterday to 5.3 today. White blood cell count has jumped from 10.8 to 31.6, platelets 155,000. INR is 1. Sodium is 141, potassium is 6.6, chloride 113, bicarbonate 10, BUN is 86, creatinine 6.8. Anion gap is 18, calcium 7.9, phosphorus 4.6, magnesium 1.5 and albumin 2.4. Urinalysis 3+ protein, 3+ blood, many rbc's, many wbc's, many bacteria, no glucose. IMAGING STUDIES: A CT of the abdomen from yesterday noncontrast shows bilateral renal cortical cysts and moderate bilateral hydronephrosis, double J ureteral stents are in place and bladder decompressed with a suprapubic catheter. ASSESSMENT: 1. Acute kidney injury on chronic kidney disease stage 4. 2. 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 3. Because of recurrent urinary tract infections and worsening hydronephrosis, bilateral nephrostomies were placed yesterday. 4. Rapid rise in creatinine overnight. 5. Marked hyperkalemia. 6. Significant blood loss in the right nephrostomy and hemoglobin dropped almost 3 [place] [address] CONSULTATION Name: YULIETVAL Reji Room: [address] [place] .R.#: [id number] Admission: 09/24/19 Attend Phys: Jordy Lamb Discharge: 10/03/19 Date of : 31 Report #: [id number] 7. Significant hyperkalemia. 8. Anion gap and non-anion gap metabolic acidosis. 9. History of gastroesophageal reflux disease and atrial fibrillation. PLAN: 1. Acute kidney injury. Certainly it was based on a fair background of stage 4 chronic kidney disease and bilateral hydronephrosis, which has now been treated with bilateral nephrostomies. I am not sure of the urine output from the right nephrostomy tube bag because as it is extremely bloody. 2. The patient has significant anion gap and non-anion gap metabolic acidosis and needs intravenous fluids, stop the Ringer's lactate and change to a bicarbonate drip at 150 mL an hour. 3. Profound hyperkalemia. The patient has been given medical measures like with calcium gluconate. I will change insulin to IV and give D50 half or not before that. The patient also to get albuterol and bicarbonate infusion as above. 4. Repeat labs in 2 hours. 5. Low threshold to transfer the patient to ICU. 6. Acute blood loss anemia, being transfused, which will increase the risk of his hyperkalemia getting worse. 7. Abdominal pain is out of proportion for the procedure yesterday. I recommend an urgent CT of the abdomen to make sure there is no internal bleeding, especially in light of bloody urine output from the right nephrostomy. He does have cortical cysts and ruptured cyst from the procedure should be kept in consideration. 8. Very close monitoring is necessary. 9. All medications were reviewed. Ringer's lactate was stopped. Potassium supplements, which were ordered per protocol were stopped. Sodium, potassium phosphate supplements ordered for protocol were stopped. I discussed in detail with the patient's family, the nursing staff, Dr. Shankar and the pharmacy staff and myself. Thank you for the consult. We will continue to follow low threshold to transfer the patient to ICU if necessary. <ELECTRONICALLY SIGNED> By: Satish Francois MD 10/04/19 0744 [id number] Francois MD /nt
== END 2019-10-03 19:21 | disposition home health service (06) | DRG 871 ==
LOC: M.ERS 07:44 → M.TBA-ER 10:38 → M.2W 10:38 → M.ICU 09-25 15:54 → M.2W 09-29 17:05
PROVIDERS: Emergency Medicine; Internal Medicine; Internal Medicine Nephrology; Nurse Practitioner Adult Health; ADMIT Family Medicine
PROC: 30233N1 Transfusion of Nonautologous Red Blood Cells into Peripheral Vein, Percutaneous Approach (ICD-10-PCS; principal; 2019-09-25)
DX: A41.81 Sepsis due to Enterococcus (principal); N17.0 Acute kidney failure with tubular necrosis; D62 Acute posthemorrhagic anemia; G93.40 Encephalopathy, unspecified; N18.4 Chronic kidney disease, stage 4 (severe); N99.840 Postprocedural hematoma of a genitourinary system organ or structure following a genitourinary system procedure; N13.6 Pyonephrosis; C79.9 Secondary malignant neoplasm of unspecified site; R65.20 Severe sepsis without septic shock; Z96.0 Presence of urogenital implants; N50.89 Other specified disorders of the male genital organs; Y83.8 Other surgical procedures as the cause of abnormal reaction of the patient, or of later complication, without mention of misadventure at the time of the procedure; C67.9 Malignant neoplasm of bladder, unspecified; E03.9 Hypothyroidism, unspecified; K21.9 Gastro-esophageal reflux disease without esophagitis; I48.91 Unspecified atrial fibrillation; K27.9 Peptic ulcer, site unspecified, unspecified as acute or chronic, without hemorrhage or perforation; E87.5 Hyperkalemia; R33.9 Retention of urine, unspecified; Z79.51 Long term (current) use of inhaled steroids; Z79.4 Long term (current) use of insulin; Z85.51 Personal history of malignant neoplasm of bladder; Z87.440 Personal history of urinary (tract) infections; Z79.899 Other long term (current) drug therapy; Z87.891 Personal history of nicotine dependence; Z92.21 Personal history of antineoplastic chemotherapy; Z92.3 Personal history of irradiation; Z93.6 Other artificial openings of urinary tract status; Z93.50 Unspecified cystostomy status; Y92.89 Other specified places as the place of occurrence of the external cause